=== PATIENT | male | born 1955 | race Caucasian/White ===

== ENCOUNTER 2016-04-05 15:09 | Emergency (ER) | payer OTHER ==
[2016-04-05 15:32] VITALS: BP 145/78; PULSE 77; RESP 18; TEMP 98.2
--- NOTE | 2016-04-05 16:27 | ED ---
Head Injury HPI - General Chief complaint: Head Injury Stated complaint: Fall - Head Injury ([facility]) Time Seen by Provider: 04/05/16 16:07 Source: patient, RN notes reviewed Mode of arrival: ambulatory Limitations: no limitations - History of Present Illness Initial comments: Patient is a 60-year-old male presenting to the with chief complaint of a headache injury after falling and slipping on ice. Patient reports she also has a laceration over the scalp. 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 He denies any other injuries at this time. He states that he has no specific headache. He does report he has some mild neck pain. Patient did refuse a c-collar in the triage. She reports his tetanus vaccination is up-to-date. Patient denies any recent fever , chills, shortness of breath, chest pain, back pain, abdominal pain, nausea vomiting, numbness or tingling, dysuria or hematuria, constipation or diarrhea, headaches or visual changes, or any other current symptoms. - Related Data Home Medications Medication Instructions Recorded Confirmed Aspirin [Adult Low Dose Aspirin EC] 81 mg PO BID 03/05/16 04/05/16 Levothyroxine Sodium [Synthroid] 125 mcg PO DAILY 03/05/16 04/05/16 [place]-3 Fatty Acids/Fish Oil [Fish 1 cap PO DAILY 03/05/16 04/05/16 Oil 1,000 mg Softgel] Ubidecarenone [Co Q-10] 30 mg PO DAILY 03/05/16 04/05/16 Allergies/Adverse reactions: Allergies Allergy/AdvReac Type Severity Reaction Status Date / Time No Known Allergies Allergy Verified 04/05/16 15:33 Review of Systems ROS Statement: Those systems with pertinent positive or pertinent negative responses have been documented in the HPI. ROS Other: All systems not noted in ROS Statement are negative. Past Medical History Past Medical History: Thyroid Disorder Additional Past Medical History / Comment(s): polycythemia, hypoglycemia History of Any Multi-Drug Resistant Organisms: None Reported Past Surgical History: Orthopedic Surgery Additional Past Surgical History / Comment(s): rhinoplasty, Rt elbow tendon repair, vasectomy Past Anesthesia/Blood Transfusion Reactions: No Reported Reaction Past Psychological History: No Psychological Hx Reported Smoking Status: Former smoker Past Alcohol Use History: Occasional Past Drug Use History: None Reported, Marijuana - Past Family History Mother Family Medical History: Cancer (Mother at age of 82 from stomach cancer) Father Family Medical History: Myocardial Infarction ([place]) (Father at the age of 56 from [place].) Brother(s) Family Medical History: No Reported History (Patient had 3 brothers one of them was murdered) Sister(s) Family Medical History: Congestive Heart Failure (CHF) (Patient had 4 sisters one of his sisters at age of 11 from VSD .) Son(s) Family Medical History: No Reported History (Patient has 2 sons no major medical problems) General Exam - General Exam Comments Initial Comments: Patient is a pleasant 60-year-old male. He does not appear to be in any acute distress at this time. Limitations: no limitations General appearance: alert, in no apparent distress Head exam: Present: atraumatic, normocephalic, normal inspection Eye exam: Present: normal appearance, PERRL, EOMI. Absent: scleral icterus, conjunctival injection, periorbital swelling ENT exam: Present: normal exam, normal oropharynx, mucous membranes moist Neck exam: Present: normal inspection. Absent: tenderness, meningismus, lymphadenopathy Respiratory exam: Present: normal lung sounds bilaterally. Absent: respiratory distress, wheezes, rales, rhonchi, stridor Cardiovascular Exam: Present: regular rate, normal rhythm, normal heart sounds. Absent: systolic murmur, diastolic murmur, rubs, gallop, clicks GI/Abdominal exam: Present: soft, normal bowel sounds. Absent: distended, tenderness, guarding, rebound, rigid Extremities exam: Present: normal inspection, full ROM, normal capillary refill. Absent: tenderness, pedal edema, joint swelling, calf tenderness Back exam: Present: normal inspection Neurological exam: Present: alert, oriented X3, CN II-XII intact Psychiatric exam: Present: normal affect, normal mood Skin exam: Present: warm, dry, intact, normal color. Absent: rash Course Vital Signs 04/05/16 15:29 Temperature 98.2 F Pulse Rate 77 Respiratory 18 Rate Blood Pressure 145/78 O2 Sat by Pulse 96 Oximetry Procedures - Laceration Laceration #1 Consent Obtained: verbal consent Indication: laceration Site: scalp (Posterior scalp) Size (cm): 3 Description: linear Depth: simple, single layer Anesthetic Used: benzocaine 0.25% Anesthesia Technique: local infiltration Amount (mls): 6 Pre-repair: wound explored, irrigated extensively Type of Sutures: other (Sterling) Number of Sutures: 5 Patient Tolerated Procedure: well, no complications Medical Decision Making - Medical Decision Making She is a pleasant 60-year-old male presenting to the after falling on the ice and hitting his head. He does have a laceration over the posterior scalp. Patient will be given marquise. CT brain and C-spine was ordered. Patient has no neurological deficits at this time. CT brain and C-spine are negative for any acute process. Patient was given 5 Sterling and his laceration. Patient started to monitor for any signs and head injury instructions were discussed. Patient understands treatment plan will comply. Patient will return in 7-10 days have marquise removed. Disposition Clinical Impression: Laceration of head, Concussion Disposition: HOME SELF-CARE Condition: Good Instructions: Concussion (ED), Head Injury (ED) Additional Instructions: Please return to the emergency room in 7-10 days to have a pulse removed. Please leave wound covered for the first 24-48 hours and then leave open to air after that time. Please use clean soap and water to clean the suture area to prevent scabbing over the top of your marquise. Please watch for any signs of infection which may include but not limited to increased pain, swelling, redness , fever or chills. Please return to the emergency room if any signs of infection do occur. Please return to the emergency room for any other concerns or complications. Patient instructed to for any signs of altered mental status or abnormal behavior. Patient is instructed to be monitored at all times for the next 24- 48 hours to make sure that there is no sequela of the head injury. Referrals: Raúl Serna MD [Primary Care Provider] - 1-2 days Time of Disposition: 16:57
--- NOTE | 2016-04-05 16:34 | CT ---
EXAMINATION TYPE: CT brain cspine wo con DATE OF EXAM: 04/05/2016 4:26 PM COMPARISON: 09/26/2010 HISTORY: Fall today with posterior head injury. CT DLP: 1512.50 mGycm, Automated exposure control for dose reduction was used. CONTRAST: None CT of the brain is performed utilizing 3 mm thick sections through the posterior fossa and 3 mm thick sections through the remaining calvarium. Study is performed within 24 hours of arrival to the hospital. No abnormal hyperdensity is present to suggest an acute intracranial hemorrhage. No mass lesion is evident. No acute infarcts are evident. Ventricles and sulci are appropriate for the patient age. Paranasal sinuses and mastoid air cells within the dintu-oo-amaz are clear. IMPRESSIONS: 1. Normal CT brain. CT cervical spine. COMPARISON: None CT of the cervical spine is performed in the axial plane at 2 mm thick sections. Reconstructed image s in the coronal, and sagittal plane are reviewed on the computer. No acute fractures are evident. Vertebral body alignment is normal. Disc heights are preserved. Vertebral body heights are preserved. No spinal canal stenosis is evident. No neural foraminal stenosis is evident. Some facet changes are present. IMPRESSIONS: 1. No acute osseous abnormality.
== END 2016-04-05 17:24 | disposition home or self-care (01) ==
LOC: EC 15:09
DX: S06.0X0A Concussion without loss of consciousness, initial encounter (principal); S01.01XA Laceration without foreign body of scalp, initial encounter; E07.9 Disorder of thyroid, unspecified; Z87.891 Personal history of nicotine dependence; Z79.82 Long term (current) use of aspirin; Z79.899 Other long term (current) drug therapy; W00.0XXA Fall on same level due to ice and snow, initial encounter; Y99.0 Civilian activity done for income or pay
CPT/HCPCS: 12002; 70450; 72125; 99283

== ENCOUNTER → 2016-11-22 | Outpatient (CLI) | payer OTHER ==
--- NOTE | 2016-11-22 22:34 | CONS ---
CONSULTATION A 60-year-old male patient is being investigated for secondary polycythemia. Sleep apnea was suspected. Anatomically, the patient does have a significant overbite and crowding of the posterior pharynx. He stops breathing at night and he snores loud. At times, he wakes up choking for air and he has chronic symptoms of nocturia. He goes to bed around 10:00 p.m., wakes up 7:00 a.m. in the morning. [place] score is at 3. No major hypersomnia or sleepiness. He is having episodic neurologic symptoms and has been investigated for MS. He has had previous history of double vision and further neurologic evaluation was done, indicated no MS. Nevertheless, the workup has not been definitive. He claims that his hemoglobin is around 17 with a hematocrit of 52. No previous phlebotomy. He has seen Hematology/Oncology and he does not have any primary polycythemia rubra vera. PAST MEDICAL HISTORY: 1. Polycythemia under investigation. 2. Hypothyroidism. PAST SURGICAL HISTORY: Includes rhinoplasty, vasectomy and tendon repair. ALLERGIES: Not known. OUTPATIENT MEDICATION: Includes: 1. Claritin-D and. 2. Levothyroxine. SOCIAL HISTORY: Nonsmoker. No history of alcohol. No history of IV drugs. FAMILY HISTORY: Mother had MS. Father of complications of myocardial infarction. REVIEW OF SYSTEMS: A 12-point review of system was done. Positive findings are mentioned above in history of present illness. BP is 138/93, pulse 72, respirations 16, temperature 98.5, saturation 95% on room air. Weight is 202. Height is 5 feet 9 inches. Neck size 15-1/2 inches. GENERAL APPEARANCE: Calm, comfortable. HEENT: Mallampati class IV with significant overbite. LUNGS: Clear to auscultation. HEART: Sounds are regular rate and rhythm. Normal S1, S2. ABDOMEN: Soft, nontender. No organomegaly. EXTREMITIES: No edema. No cyanosis or clubbing. IMPRESSION: 1. Polycythemia under investigation. Rule out secondary cause, including obstructive sleep apnea. 2. Significant overbite and Mallampati class IV. 3. Episodic neurologic deficits in addition to visual disturbance, under investigation for multiple sclerosis. 4. Hypothyroidism. PLAN: 1. Proceed with a polysomnogram looking for a significant sleep breathing disorder contributing to polycythemia. 2. Will review the sleep study once complete and will make further recommendations accordingly. MMODL / IJN: [id number] /
== END ==
LOC: SLEEP 16:18
PROVIDERS: ATTEND Internal Medicine Critical Care Medicine
DX: E03.9 Hypothyroidism, unspecified (principal); Z79.899 Other long term (current) drug therapy
CPT/HCPCS: 99211

== ENCOUNTER → 2017-06-20 | Outpatient (CLI) | payer OTHER ==
--- NOTE | 2017-06-20 18:47 | PN ---
PROGRESS NOTE This is a 61-year-old male patient who is coming in for a compliancy check regarding his obstructive sleep apnea treatment. The patient was diagnosed having TRUE with an AHI of 26, worse in the supine body position, where the AHI was measured to be 47.3. The patient was offered CPAP therapy, and the patient is currently receiving CPAP with a pressure of 10 cm of water. On today's evaluation, the patient reports marked improvement in his sleep quality. He is sleeping much better. He is waking up much more alert and refreshed during the day. No major hypersomnia or sleepiness during the day. He is able to function without feeling drowsy or sleepy. He is very compliant. He is averaging around 7.6 hours of CPAP use per night. Leak factor is 26 L/minute. AHI while on treatment is down to 2. He is using the nose pillows. He needs a follow-up CBC regarding his chronic polycythemia. He is known to have hypothyroidism. Another issue is some discomfort and irritation in the back of his throat. He was treated for H pylori by triple antibiotic. During the course of the treatment he felt better, and I suspect that the patient is having on and off reflux contributing to his throat symptoms. The patient is also having post-nasal drainage, for which he is on Flonase, and he is also taking loratadine over the counter. REVIEW OF SYSTEMS: Twelve-point review of systems was done. No recent weight gain or weight loss. Appetite is good. He has occasional post-nasal drainage, for which he is on Flonase. No sinus pain or drainage. No chronic pain or fibromyalgia syndrome-like symptoms. No arthritis. No joint deformities. No cough or sputum production. No nausea or vomiting. He may have occasional reflux. No headaches or altered mentation. No falls. No skeletal injuries. No wounds or ulcers. No anxiety. No depression. No other complaints otherwise. PHYSICAL EXAMINATION: BP is 137/84, pulse 69, respirations 16, temperature 98.1. Leroy score is 5. Saturation 96% on room air. Weight is 203. GENERAL APPEARANCE: Calm, comfortable. Head is atraumatic, normocephalic. NECK: Supple. There is no JVD. No goiter or neck masses. Mallampati class IV. LUNGS: Clear to auscultation. HEART: Heart sounds are regular rate and rhythm. Normal S1, S2. No S3, S4. No murmurs. ABDOMEN: Soft, nontender. No organomegaly. EXTREMITIES: No edema. No cyanosis or clubbing. NEUROLOGIC: Alert and oriented x3. There is no focal neurological deficit. PSYCHIATRIC: Negative for anxiety or depression. SKIN: Negative for any wounds or ulceration. IMPRESSION: 1. Symptomatic obstructive sleep apnea with an AHI of 26, currently on a CPAP pressure of 10 cm of water with excellent clinical response and compliance. 2. Post-nasal drainage, allergic in nature, currently on a combination of Flonase and Claritin. 3. Occasional throat irritation, probably reflux. 4. Helicobacter pylori infection, treated. 5. Hypersomnia, improved. 6. Polycythemia that needs to be followed up. Rule out secondary polycythemia related to obstructive sleep apnea. PLAN: 1. Continue CPAP treatment at the same level of pressure. 2. Offer Prevacid 30 mg p.o. at bedtime. 3. Continue Flonase and Claritin. 4. Follow-up CBC regarding polycythemia. 5. Clinically improved. The patient is less somnolent and sleepy. He will see me back in a year's time, earlier if needed. MMODL / IJN: [id number] /
== END | disposition home or self-care (01) ==
LOC: SLEEP 16:51
PROVIDERS: ATTEND Internal Medicine Critical Care Medicine
DX: G47.33 Obstructive sleep apnea (adult) (pediatric) (principal); R09.82 Postnasal drip; B96.81 Helicobacter pylori [H. pylori] as the cause of diseases classified elsewhere; G47.10 Hypersomnia, unspecified; R07.0 Pain in throat; Z99.89 Dependence on other enabling machines and devices

== ENCOUNTER 2018-07-02 12:58 | Inpatient (IN) | payer OTHER ==
[2018-07-02] MEDS ORDERED: cefTRIAXone IN SWFI 1,000 MG/10 ML SYRINGE IVP STA (13:28)
[2018-07-02] MEDS ORDERED: VANCOMYCIN IV PER PHARMACY 1 EACH MISC MISCELLANE PRN (13:33)
--- NOTE | 2018-07-02 13:36 | ED ---
General Adult HPI - General Chief complaint: Extremity Problem,Nontraumatic Stated complaint: lt knee infection Time Seen by Provider: 07/02/18 13:00 Source: patient, RN notes reviewed Mode of arrival: wheelchair Limitations: no limitations - History of Present Illness Initial comments: This is a 62-year-old male presents emergency Department with a red swollen hot suprapatellar knee. Patient states started a few days ago after is crawling around in the attic. Patient states he can bend his knee but hurts on the top of his knee above the patella. Patient states he has had a fever but he does note the temperature was. Patient denies any chills. Patient states the redness has started to spread as of today. Patient denies any other symptoms at this time. Patient denies any ALLERGIES to antibiotics. Patient states he saw Dr. Kareem Serna wanted him to come the emergency department. - Related Data Home Medications Medication Instructions Recorded Confirmed Levothyroxine Sodium [Synthroid] 125 mcg PO DAILY 03/05/16 07/02/18 Ibuprofen [Motrin Ib] 200 - 600 mg PO Q6H PRN 07/02/18 07/02/18 [place](Unknown Dose) 1 tab PO ONCE PRN 07/02/18 07/02/18 Allergies Allergy/AdvReac Type Severity Reaction Status Date / Time No Known Allergies Allergy Verified 07/02/18 13:17 Review of Systems ROS Statement: Those systems with pertinent positive or pertinent negative responses have been documented in the HPI. ROS Other: All systems not noted in ROS Statement are negative. Past Medical History Past Medical History: GERD/Reflux, Thyroid Disorder Additional Past Medical History / Comment(s): polycythemia, hypoglycemia History of Any Multi-Drug Resistant Organisms: None Reported Past Surgical History: Orthopedic Surgery Additional Past Surgical History / Comment(s): rhinoplasty, Rt elbow tendon repair, vasectomy, COLONOSCOPY Past Anesthesia/Blood Transfusion Reactions: Postoperative Nausea & Vomiting (PONV) Past Psychological History: No Psychological Hx Reported Smoking Status: Former smoker Past Alcohol Use History: None Reported Past Drug Use History: None Reported - Past Family History Mother Family Medical History: Cancer Father Family Medical History: Myocardial Infarction ([place]) Brother(s) Family Medical History: No Reported History Sister(s) Family Medical History: Congestive Heart Failure (CHF) Son(s) Family Medical History: No Reported History General Exam - General Exam Comments Initial Comments: GENERAL: Patient is well-developed and well-nourished. Patient is nontoxic and well- hydrated and is in mild distress. ENT: Neck is soft and supple. Neck has full range of motion without eliciting any pain. EYES: The sclera were anicteric and conjunctiva were pink and moist. Extraocular movements were intact and pupils were equal round and reactive to light. Eyelids were unremarkable. PULMONARY: Unlabored respirations. Good breath sounds bilaterally. No audible rales rhonchi or wheezing was noted. CARDIOVASCULAR: There is a regular rate and rhythm without any murmurs gallops or rubs. ABDOMEN: Soft and nontender with normal bowel sounds. SKIN: Skin is clear with no lesions or rashes and otherwise unremarkable. NEUROLOGIC: Patient is alert and oriented x3. Cranial nerves II through XII are grossly intact. Motor and sensory are also intact. Normal speech, volume and content. Symmetrical smile. MUSCULOSKELETAL: The left suprapatellar region is erythematous tender and slightly swollen. LYMPHATICS: No significant lymphadenopathy is noted PSYCHIATRIC: Normal psychiatric evaluation. Limitations: no limitations Course Vital Signs 07/02/18 13:00 Temperature 98.0 F Pulse Rate 86 Respiratory 18 Rate Blood Pressure 145/84 O2 Sat by Pulse 99 Oximetry Medical Decision Making - Medical Decision Making EKG shows normal sinus rhythm at 80 bpm AR interval 248 QRSs 120 QT interval 396 QTC is 456 per patient's EKG shows right bundle-branch block. Disposition Clinical Impression: Septic prepatellar bursitis Disposition: ADMITTED IP TO THIS HOSP Referrals: Raúl Serna MD [Primary Care Provider] - 1-2 days Time of Disposition: 13:35
[2018-07-02] MEDS ORDERED: SODIUM CHLORIDE 0.9% 1,000 ML IV ONE (13:39)
[2018-07-02] MEDS ORDERED: VANCOMYCIN 1,750 MG in SODIUM CHLORIDE 0.9% 500 ML 500 ML IVPB STA (13:39)
[2018-07-02 14:11] LABS: Basophils % (A) 0 %; Eosinophils # (A) 0.2 k/uL (0-0.7); Eosinophils % (A) 2 %; HCT 41.2 % (39.0-53.0); HGB 14.5 gm/dL (13.0-17.5); Lymphocytes # (A) 1.4 k/uL (1.0-4.8); Lymphocytes % (A) 13 %; MCH 29.2 pg (25.0-35.0); MCHC 35.1 g/dL (31.0-37.0); MCV 83.1 fL (80.0-100.0); Mean Platelet Volume 6.1; Monocytes # (A) 0.8 k/uL (0-1.0); Monocytes % (A) 7 %; Neutrophils # (A) 8.7 k/uL (1.3-7.7); Neutrophils % (A) 77 %; Platelet Count 197 k/uL (150-450); RBC 4.96 m/uL (4.30-5.90); RDW 12.7 % (11.5-15.5); WBC 11.3 k/uL (3.8-10.6)
[2018-07-02 14:20] LABS: ALT 22 U/L (21-72); AST 21 U/L (17-59); Alkaline Phosphatase 84 U/L (38-126); Anion Gap 10 mmol/L; Blood Urea Nitrogen 16 mg/dL (9-20); Calcium 9.5 mg/dL (8.4-10.2); Carbon Dioxide 25 mmol/L (22-30); Chloride 104 mmol/L (98-107); Glucose 144 mg/dL (74-99); Potassium 4.2 mmol/L (3.5-5.1); Sodium 139 mmol/L (137-145); Total Bilirubin 0.7 mg/dL (0.2-1.3); Total Protein 6.8 g/dL (6.3-8.2)
[2018-07-02] MEDS ORDERED: HYDROcodone/APAP 5-325MG 1 EACH TAB PO PRN (14:48)
--- NOTE | 2018-07-02 14:56 | P.HPIM ---
History of Present Illness H&P Date: 07/02/18 Chief Complaint: Left knee pain This is a 62-year-old male patient of Drs. Osei with past medical history of hypothyroidism. Patient states he recently had his left knee checked by Dr. Farooq and was told he had some tendinitis. Patient then went to [place] and worked on remodeling a home. He developed redness and swelling to the left knee to continue to progress. He tried taking [place] and ibuprofen for pain which became much worse last evening. He also complains of fever and chills with generalized muscle aches. He also complains of cough productive. He denies abdominal symptoms. Patient came into [facility] emergency center for evaluation. He was found to be afebrile, white count 11.3, blood sugar 144, creatinine 0.82. Electrolytes and liver function tests within normal limits. Patient was started on Rocephin and vancomycin and admitted to the [facility] floor. Consult in place for Dr. Farooq and added consult for Dr. Hamilton. Review of Systems All systems: negative Constitutional: Reports chills, Reports fatigue, Reports fever, Denies malaise, Denies poor appetite, Denies weakness, Denies weight loss Eyes: denies blurred vision, denies pain Ears, nose, mouth and throat: Reports post-nasal drip, Denies dental pain, Denies dysphagia, Denies headache, Denies hoarseness, Denies mouth pain, Denies sore throat, Denies vertigo Cardiovascular: Reports leg edema, Denies chest pain, Denies dyspnea on exertion, Denies edema, Denies lightheadedness, Denies orthopnea, Denies shor tness of breath, Denies syncope Respiratory: Reports cough, Denies cough with sputum, Denies dyspnea, Denies excessive sputum, Denies hemoptysis, Denies home oxygen, Denies wheezing Gastrointestinal: Denies abdominal pain, Denies diarrhea, Denies loss of appetite, Denies nausea, Denies vomiting Genitourinary: Denies dysuria Musculoskeletal: Reports gait dysfunction, Reports myalgias, Denies frequent falls, Denies muscle weakness Musculoskeletal: left: knee pain, knee stiffness, knee swelling Integumentary: Reports color changes, Reports darkening of skin, Denies pruritus, Denies rash Neurological: Denies aphasia, Denies change in mentation, Denies change in speech, Denies headaches, Denies numbness, Denies seizures, Denies weakness Psychiatric: Denies anxiety, Denies depression Endocrine: Denies fatigue, Denies weight change Past Medical History Past Medical History: GERD/Reflux, Thyroid Disorder Additional Past Medical History / Comment(s): polycythemia, hypoglycemia History of Any Multi-Drug Resistant Organisms: None Reported Past Surgical History: Heart Catheterization, Orthopedic Surgery Additional Past Surgical History / Comment(s): rhinoplasty, Rt tricep tendon repair, vasectomy, COLONOSCOPY Past Anesthesia/Blood Transfusion Reactions: Postoperative Nausea & Vomiting (PONV) Past Psychological History: No Psychological Hx Reported Smoking Status: Former smoker Past Alcohol Use History: None Reported Additional Past Alcohol Use History / Comment(s): Patient smoked for only 78 years and quit 37 years ago. He denies any marijuana, street drug or alcohol use. He lives at home with his . They do have a second home in [place]. Past Drug Use History: None Reported - Past Family History Mother Family Medical History: Cancer Additional Family Medical History / Comment(s): Mother at age 82 from stomach cancer with metastatic disease to the brain. Father Family Medical History: Myocardial Infarction ([place]) Additional Family Medical History / Comment(s): Father at age 56 from a myocardial infarction. Brother(s) Family Medical History: No Reported History Additional Family Medical History / Comment(s): Patient has 3 brothers. One was murdered. Other brothers has no major medical problems. Sister(s) Family Medical History: Congestive Heart Failure (CHF) Additional Family Medical History / Comment(s): The patient is a total of 4 sisters. One from congenital heart disease at age 11. Son(s) Family Medical History: No Reported History Additional Family Medical History / Comment(s): Patient has 2 sons with no major medical problems. Medications and Allergies Home Medications Medication Instructions Recorded Confirmed Type Levothyroxine Sodium [Synthroid] 125 mcg PO DAILY 03/05/16 07/02/18 History Ibuprofen [Motrin Ib] 200 - 600 mg PO Q6H PRN 07/02/18 07/02/18 History Vinton(Unknown Dose) 1 tab PO ONCE PRN 07/02/18 07/02/18 History Allergies Allergy/AdvReac Type Severity Reaction Status Date / Time No Known Allergies Allergy Verified 07/02/18 13:17 Physical Exam Vitals: Vital Signs Temp Pulse Resp BP Pulse Ox 07/02/18 13:00 98.0 F 86 18 145/84 99 Intake and Output 07/01/18 07/02/18 07/02/18 22:59 06:59 14:59 Other: Weight 90.718 kg Gen: This is a 62-year-old male. He is sitting up in the ER stretcher appears to be comfortable and in no acute distress. HEENT: Head is atraumatic, normocephalic. Pupils equal, round. Sclerae is anicteric. NECK: Supple. No JVD. No lymphadenopathy. No thyromegaly. LUNGS: Clear to auscultation. No wheezes or rhonchi. No intercostal retractions. HEART: Regular rate and rhythm. No murmur. ABDOMEN: Soft. Bowel sounds are present. No masses. No tenderness. EXTREMITIES: No pedal edema. No calf tenderness. Significant erythema and edema with warmth to the left knee. NEUROLOGICAL: Patient is awake, alert and oriented x3. Cranial nerves 2 through 12 are grossly intact. Results CBC & Chem 7: 07/02/18 13:55 07/02/18 13:55 Labs: Abnormal Lab Results - Last 24 Hours (Table) 07/02/18 07/02/18 Range/Units 13:55 13:55 WBC 11.3 H (3.8-10.6) k/uL Neutrophils # 8.7 H (1.3-7.7) k/uL Glucose 144 H (74-99) mg/dL Thrombosis Risk Factor Assmnt - DVT/VTE Prophylaxis DVT/VTE Prophylaxis: Pharmacologic Prophylaxis ordered Assessment and Plan Plan: 1. Septic bursitis left knee. Patient's been started on Rocephin and vancomycin. Consult with Dr. Farooq and Dr. Hamilton. Toradol scheduled for pain control and Vinton or Tylenol available as needed. 2. Hypothyroidism. Continue levothyroxine. 3. DVT prophylaxis. Heparin subcu. 4. GI prophylaxis. Pepcid. 5. Hyperglycemia without history of diabetes. Patient will be admitted to the hospital for a minimum of 2 night stay. Discharge plan: To be determined Impression and plan of care have been directed as dictated by the signing physician. Christine Gonzalez nurse practitioner acting as scribe for signing physician.
--- NOTE | 2018-07-02 15:00 | P.CONS ---
History of Present Illness - Reason for Consult Consult date: 07/02/18 Left knee septic bursitis - History of Present Illness This is a 62-year-old male patient with past medical history of hypothyroidism. Patient states he recently had his left knee checked by Dr. Farooq and was told he had some tendinitis. Patient then went to [place] and worked on remodeling a home. He developed redness and swelling to the left knee to continue to progress. He tried taking [place] and ibuprofen for pain which became much worse last evening. He also complains of fever and chills with generalized muscle aches. He also complains of cough productive. He denies abdominal symptoms. Patient came into [facility] emergency center for evaluation. He was found to be afebrile, white count 11.3, blood sugar 144, creatinine 0.82. Electrolytes and liver function tests within normal limits. Patient was started on Rocephin and vancomycin and admitted to the [facility] floor. Consult in place for Dr. Farooq. Blood cultures are status received. Review of Systems Constitutional: Reports chills, Reports fatigue, Reports fever, Denies malaise, Denies poor appetite, Denies weakness, Denies weight loss Eyes: denies blurred vision, denies pain Ears, nose, mouth and throat: Reports post-nasal drip, Denies dental pain, Denies dysphagia, Denies headache, Denies hoarseness, Denies mouth pain, Denies sore throat, Denies vertigo Cardiovascular: Reports leg edema, Denies chest pain, Denies dyspnea on exertion, Denies edema, Denies lightheadedness, Denies orthopnea, Denies shortness of breath, Denies syncope Respiratory: Reports cough, Denies cough with sputum, Denies dyspnea, Denies excessive sputum, Denies hemoptysis, Denies home oxygen, Denies wheezing Gastrointestinal: Denies abdominal pain, Denies diarrhea, Denies loss of appetite, Denies nausea, Denies vomiting Genitourinary: Denies dysuria Musculoskeletal: Reports gait dysfunction, Reports myalgias, Denies frequent falls, Denies muscle weakness Musculoskeletal: left: knee pain, knee stiffness, knee swelling Integumentary: Reports color changes, Reports darkening of skin, Denies pruritus, Denies rash Neurological: Denies aphasia, Denies change in mentation, Denies change in speech, Denies headaches, Denies numbness, Denies seizures, Denies weakness Psychiatric: Denies anxiety, Denies depression Endocrine: Denies fatigue, Denies weight change Past Medical History Past Medical History: GERD/Reflux, Thyroid Disorder Additional Past Medical History / Comment(s): polycythemia, hypoglycemia History of Any Multi-Drug Resistant Organisms: None Reported Past Surgical History: Heart Catheterization, Orthopedic Surgery Additional Past Surgical History / Comment(s): rhinoplasty, Rt tricep tendon repair, vasectomy, COLONOSCOPY Past Anesthesia/Blood Transfusion Reactions: Postoperative Nausea & Vomiting (PONV) Past Psychological History: No Psychological Hx Reported Smoking Status: Former smoker Past Alcohol Use History: None Reported Additional Past Alcohol Use History / Comment(s): Patient smoked for only 78 years and quit 37 years ago. He denies any marijuana, street drug or alcohol use. He lives at home with his . They do have a second home in [place]. Past Drug Use History: None Reported - Past Family History Mother Family Medical History: Cancer Additional Family Medical History / Comment(s): Mother at age 82 from stomach cancer with metastatic disease to the brain. Father Family Medical History: Myocardial Infarction ([place]) Additional Family Medical History / Comment(s): Father at age 56 from a myocardial infarction. Brother(s) Family Medical History: No Reported History Additional Family Medical History / Comment(s): Patient has 3 brothers. One was murdered. Other brothers has no major medical problems. Sister(s) Family Medical History: Congestive Heart Failure (CHF) Additional Family Medical History / Comment(s): The patient is a total of 4 sisters. One from congenital heart disease at age 11. Son(s) Family Medical History: No Reported History Additional Family Medical History / Comment(s): Patient has 2 sons with no major medical problems. Medications and Allergies Home Medications Medication Instructions Recorded Confirmed Type Levothyroxine Sodium [Synthroid] 125 mcg PO DAILY 03/05/16 07/02/18 History Ibuprofen [Motrin Ib] 200 - 600 mg PO Q6H PRN 07/02/18 07/02/18 History Monte[place](Unknown Dose) 1 tab PO ONCE PRN 07/02/18 07/02/18 History Allergies Allergy/AdvReac Type Severity Reaction Status Date / Time No Known Allergies Allergy Verified 07/02/18 13:17 Physical Exam Vitals: Vital Signs Temp Pulse Resp BP Pulse Ox 07/02/18 13:00 98.0 F 86 18 145/84 99 Intake and Output 07/01/18 07/02/18 07/02/18 22:59 06:59 14:59 Other: Weight 90.718 kg Gen: This is a 62-year-old male. He is sitting up in the ER stretcher appears to be comfortable and in no acute distress. HEENT: Head is atraumatic, normocephalic. Pupils equal, round. Sclerae is anicteric. NECK: Supple. No JVD. No lymphadenopathy. No thyromegaly. LUNGS: Clear to auscultation. No wheezes or rhonchi. No intercostal retractions. HEART: Regular rate and rhythm. No murmur. ABDOMEN: Soft. Bowel sounds are present. No masses. No tenderness. EXTREMITIES: No pedal edema. No calf tenderness. Significant erythema and edema with warmth to the left knee. NEUROLOGICAL: Patient is awake, alert and oriented x3. Cranial nerves 2 through 12 are grossly intact. Results Results: Laboratory Results WBC 11.3 k/uL (3.8-10.6) H 07/02/18 13:55 RBC 4.96 m/uL (4.30-5.90) 07/02/18 13:55 Hgb 14.5 gm/dL (13.0-17.5) 07/02/18 13:55 Hct 41.2 % (39.0-53.0) 07/02/18 13:55 MCV 83.1 fL (80.0-100.0) 07/02/18 13:55 MCH 29.2 pg (25.0-35.0) 07/02/18 13:55 MCHC 35.1 g/dL (31.0-37.0) 07/02/18 13:55 RDW 12.7 % (11.5-15.5) 07/02/18 13:55 Plt Count 197 k/uL (150-450) 07/02/18 13:55 Neutrophils % 77 % 07/02/18 13:55 Lymphocytes % 13 % 07/02/18 13:55 Monocytes % 7 % 07/02/18 13:55 Eosinophils % 2 % 07/02/18 13:55 Basophils % 0 % 07/02/18 13:55 Neutrophils # 8.7 k/uL (1.3-7.7) H 07/02/18 13:55 Lymphocytes # 1.4 k/uL (1.0-4.8) 07/02/18 13:55 Monocytes # 0.8 k/uL (0-1.0) 07/02/18 13:55 Eosinophils # 0.2 k/uL (0-0.7) 07/02/18 13:55 Basophils # 0.0 k/uL (0-0.2) 07/02/18 13:55 Sodium 139 mmol/L (137-145) 07/02/18 13:55 Potassium 4.2 mmol/L (3.5-5.1) 07/02/18 13:55 Chloride 104 mmol/L (98-107) 07/02/18 13:55 Carbon Dioxide 25 mmol/L (22-30) 07/02/18 13:55 Anion Gap 10 mmol/L 07/02/18 13:55 BUN 16 mg/dL (9-20) 07/02/18 13:55 Creatinine 0.82 mg/dL (0.66-1.25) 07/02/18 13:55 Est GFR (CKD-EPI)AfAm >90 (>60 ml/min/1.73 sqM) 07/02/18 13:55 Est GFR (CKD-EPI)NonAf >90 (>60 ml/min/1.73 sqM) 07/02/18 13:55 Glucose 144 mg/dL (74-99) H 07/02/18 13:55 Plasma Lactic Acid Florentino 1.4 mmol/L (0.7-2.0) 07/02/18 13:55 Calcium 9.5 mg/dL (8.4-10.2) 07/02/18 13:55 Total Bilirubin 0.7 mg/dL (0.2-1.3) 07/02/18 13:55 AST 21 U/L (17-59) 07/02/18 13:55 ALT 22 U/L (21-72) 07/02/18 13:55 Alkaline Phosphatase 84 U/L (38-126) 07/02/18 13:55 Total Protein 6.8 g/dL (6.3-8.2) 07/02/18 13:55 Albumin 4.0 g/dL (3.5-5.0) 07/02/18 13:55 CBC & Chem 7: 07/02/18 13:55 07/02/18 13:55 Labs: Abnormal Lab Results - Last 24 Hours (Table) 07/02/18 07/02/18 Range/Units 13:55 13:55 WBC 11.3 H (3.8-10.6) k/uL Neutrophils # 8.7 H (1.3-7.7) k/uL Glucose 144 H (74-99) mg/dL Assessment and Plan Plan: This is a 62-year-old male who presented to the hospital with septic bursitis of the left knee. There is a consult in place for Dr. Farooq and 04 blood cultures to be obtained if he performs I&D. Patient is currently on Rocephin and vancomycin. He has Toradol scheduled for pain control and [place] or Tylenol available as needed. Blood cultures status received. Continue supportive care. Further recommendations as patient progresses. The above dictated assessment and findings were discussed with Dr. Hamilton. The impression and plan of care have been directed as dictated. Christine Gonzalez nurse practitioner acting as scribe for Dr. Hamilton.
[2018-07-02] MEDS: KETOROLAC 30 MG/ML 1 ML VIAL IVP SCH ×3 (15:19→23:14)
[2018-07-02] MEDS: VANCOMYCIN 1,500 MG in SODIUM CHLORIDE 0.9% 250 ML IVPB SCH (23:15)
[2018-07-03] MEDS: LEVOTHYROXINE 125 MCG TAB PO SCH (05:44)
[2018-07-03] MEDS: KETOROLAC 30 MG/ML 1 ML VIAL IVP SCH ×3 (05:44→18:23)
[2018-07-03] MEDS: VANCOMYCIN 1,500 MG in SODIUM CHLORIDE 0.9% 250 ML IVPB SCH ×2 (07:27→16:46)
[2018-07-03] MEDS: ACETAMINOPHEN TAB 325 MG TAB PO PRN (11:09)
--- NOTE | 2018-07-03 12:14 | P.CNOR ---
History of Present Illness - HPI Consult date: 07/03/18 History of present illness: This is a 62-year-old male who is admitted for swelling and pain in the left knee. Patient states that he was recently working in an attic and kneeling when he developed pain and swelling in the left knee. Patient states that he first noticed these symptoms on 06/27/2018. Patient reports having a fever along with a cough as well. Patient states that he was sent to the emergency room by his primary care physician for further management. Patient states that since he has been on IV antibiotics he has noticed marked improvement in swelling. Patient states that he did have redness spreading down his leg, but this has improved. Patient denies any numbness, weakness, tingling, abdominal pain, shortness of breath or chest pain. Review of Systems See HPI. Past Medical History Past Medical History: GERD/Reflux, Osteoarthritis (OA), Sleep Apnea/CPAP/BIPAP, Thyroid Disorder Additional Past Medical History / Comment(s): polycythemia, hypoglycemia, hypothyroid, MVP, TRUE with Cpap use, slight dysphagia History of Any Multi-Drug Resistant Organisms: None Reported Past Surgical History: Heart Catheterization, Orthopedic Surgery Additional Past Surgical History / Comment(s): rhinoplasty, Rt tricep tendon repair, vasectomy, EGD/COLONOSCOPY Past Anesthesia/Blood Transfusion Reactions: Postoperative Nausea & Vomiting (PONV) Smoking Status: Former smoker - Past Family History Mother Family Medical History: Cancer Additional Family Medical History / Comment(s): Mother at age 82 from stomach cancer with metastatic disease to the brain. Father Family Medical History: Myocardial Infarction ([place]) Additional Family Medical History / Comment(s): Father at age 56 from a myocardial infarction. Brother(s) Family Medical History: No Reported History Additional Family Medical History / Comment(s): Patient has 3 brothers. One was murdered. Other brothers have no major medical problems. Sister(s) Family Medical History: Congestive Heart Failure (CHF) Additional Family Medical History / Comment(s): The patient is a total of 4 sisters. One from congenital heart disease at age 11. Son(s) Family Medical History: No Reported History Additional Family Medical History / Comment(s): Patient has 2 sons with no major medical problems. Medications and Allergies Home Medications Medication Instructions Recorded Confirmed Type Levothyroxine Sodium [Synthroid] 125 mcg PO DAILY 03/05/16 07/02/18 History Ibuprofen [Motrin Ib] 200 - 600 mg PO Q6H PRN 07/02/18 07/02/18 History Spencer(Unknown Dose) 1 tab PO ONCE PRN 07/02/18 07/02/18 History Allergies Allergy/AdvReac Type Severity Reaction Status Date / Time No Known Allergies Allergy Verified 07/02/18 13:17 Physical Examination On exam patient is sitting up comfortably in bed in no acute distress. Patient is alert and oriented 3. There is mild swelling to the anterior aspect of the left knee. The prepatellar bursa is boggy when palpated. There is mild erythema and skin is intact. There is no tenderness to palpation. Calf is soft and nontender to palpation. Sensation is intact. Neurovascular status and circulatory status are intact. Results - Labs Labs: Abnormal Lab Results - Last 24 Hours (Table) 07/02/18 07/02/18 Range/Units 13:55 13:55 WBC 11.3 H (3.8-10.6) k/uL Neutrophils # 8.7 H (1.3-7.7) k/uL Glucose 144 H (74-99) mg/dL H & H 07/02/18 Range/Units 13:55 Hgb 14.5 (13.0-17.5) gm/dL Hct 41.2 (39.0-53.0) % Result Diagrams: 07/02/18 13:55 07/02/18 13:55 Assessment and Plan Assessment: GERD Sleep apnea Thyroid disorder Osteoarthritis (1) Septic prepatellar bursitis Current Visit: Yes Status: Acute Code(s): M71.169 - OTHER INFECTIVE BURSITIS, UNSPECIFIED KNEE SNOMED Code(s): 85293886 Plan: 1. Recommend warm compresses to the left knee with K-pad. 2. Continue IV antibiotics per infectious disease. 3. No surgical intervention planned. Will continue to follow the patient closely.
[2018-07-03] MEDS ORDERED: LIDOCAINE 1% INJ 10MG/ML (20 ML MDV) SQ ONE (15:18)
--- NOTE | 2018-07-03 17:13 | P.CON ---
Consult Note - . Consult date: 07/03/18 Assessment/Plan:: This is a 62-year-old male patient with past medical history of hypothyroidism. Patient states he recently had his left knee checked by Dr. Farooq and was told he had some tendinitis. Patient then went to [place] and worked on [place] a home. He developed redness and swelling to the left knee to continue to progress. He tried taking Maynard and ibuprofen for pain which became much worse last evening. He also complains of fever and chills with generalized muscle aches. He also complains of cough productive. He denies abdominal symptoms. Patient came into [facility] emergency center for evaluation. He was found to be afebrile, white count 11.3, blood sugar 144, creatinine 0.82. Electrolytes and liver function tests within normal limits. Patient was started on Rocephin and vancomycin and [facility]. Consult in place for Dr. Farooq. Blood cultures are status received.please see the consult note is dictated by nurse practitioner Mrs. Christine Gonzalez. 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 He did have on some kneepads but because he was sweating they didn't stay in place and he did not continuously reposition them. He did recognize that he had some trauma to his knees. And now has developed evidence of the significant left prepatellar bursitis. I did the pleasure of discussing the case with orthopedic surgery and they will aspirate the site for cultures will also help with more rapid resolution of the underlying infectious process. Antimicrobial therapy with vancomycin and Rocephin has been started. Pain control with ketorolac is an excellent choice. Warmth is being applied for pain control. Cultures from the site will help determine course of antibiotic therapy at discharge. If he rapidly improves should be able to utilize an oral course of antimicrobial therapy. I was evaluation, he is dictated by nurse practitioner Mrs. Christine Gonzalez.
[2018-07-03 17:24] LABS: Hemoglobin A1C 4.8 % (4.0-6.0)
[2018-07-04] MEDS: VANCOMYCIN 1,500 MG in SODIUM CHLORIDE 0.9% 250 ML IVPB SCH ×2 (00:06→07:35)
[2018-07-04] MEDS: KETOROLAC 30 MG/ML 1 ML VIAL IVP SCH ×4 (00:06→19:16)
[2018-07-04] MEDS: LEVOTHYROXINE 125 MCG TAB PO SCH (05:43)
[2018-07-04] MEDS ORDERED: VANCOMYCIN TROUGH DUE 1 EACH MISC MISCELLANE ONE (07:00)
[2018-07-04 07:52] LABS: Anion Gap 6 mmol/L; Blood Urea Nitrogen 19 mg/dL (9-20); Calcium 8.5 mg/dL (8.4-10.2); Carbon Dioxide 27 mmol/L (22-30); Chloride 107 mmol/L (98-107); Glucose 96 mg/dL (74-99); Potassium 3.9 mmol/L (3.5-5.1); Sodium 140 mmol/L (137-145)
--- NOTE | 2018-07-04 08:33 | P.PN ---
Subjective Progress Note Date: 07/04/18 This is a 62-year-old male who is admitted for septic left prepatellar bursitis. Patient states that his pain has improved today, but he has not noticed much improvement in swelling. Patient states that he has been using the heating pad. Patient denies any new complaints today. denies any fever/chills, numbness, weakness, tingling, abdominal pain, shortness of breath or chest pain. Objective - Vital Signs Vital signs: Vital Signs Temp 98.5 F 07/04/18 07:00 Pulse 76 07/04/18 07:40 Resp 17 07/04/18 07:00 BP 123/75 07/04/18 07:00 Pulse Ox 94 L 07/04/18 07:00 Intake & Output 07/03/18 07/04/18 07/04/18 18:59 06:59 18:59 Intake Total 300 460 220 Balance 300 460 220 Intake: Intake, IV Titration 300 460 Amount Sodium Chloride 0.9% 1, 210 000 ml @ 75 mls/hr IV . [id number] [facility] Rx#:[id number] Vancomycin 1,500 mg In 250 250 Sodium Chloride 0.9% 250 ml @ 125 mls/hr IVPB Q8HR [facility] Rx#:[id number] cefTRIAXone 1 gm In 50 Sodium Chloride 0.9% 50 ml @ 100 mls/hr IVPB Q24HR [facility] Rx#:[id number] Oral 220 Other: Voiding Method Toilet # Voids 1 1 - Exam Vital signs are stable. Patient is in no acute distress and is alert and oriented 3. There is mild swelling and erythema over the anterior aspect of the left knee. This area is mildly tender to palpation and fluctuant. Calf is soft and nontender to palpation. Patient has full foot and ankle motion without pain or difficulty. Neurovascular status and circulatory status are intact. - Labs CBC & Chem 7: 07/02/18 13:55 07/04/18 07:13 Labs: Microbiology - Last 24 Hours (Table) 07/03/18 15:05 Gram Stain - Preliminary Knee - Left Body Fluid Culture - Preliminary 07/03/18 15:05 Anaerobic Culture - Preliminary Knee - Left 07/02/18 13:55 Blood Culture - Preliminary Blood No Growth after 24 hours Assessment and Plan Assessment: GERD Sleep apnea Thyroid disorder Osteoarthritis (1) Septic prepatellar bursitis Current Visit: Yes Status: Acute Code(s): M71.169 - OTHER INFECTIVE BURSITIS, UNSPECIFIED KNEE SNOMED Code(s): 68416867 Plan: 1. Recommend continued warm compresses to the left knee with K-pad. 2. Continue IV antibiotics per infectious disease. 3. Aspiration of the left prepatellar bursa was performed yesterday at bedside and 4 cc of purulent yellow fluid was obtained. Cultures are pending, but Gram stain shows many polymorphonuclear leukocytes and moderate gram-positive cocci. 4. NPO 5. Patient's symptoms have not improved with warm compresses and IV antibiotics. Planning for incision and drainage of left prepatellar bursa later today pending patient consent.
--- NOTE | 2018-07-04 12:15 | P.PN ---
Subjective Progress Note Date: 07/03/18 This is a 62-year-old male patient of Drs. Osei with past medical history of hypothyroidism. Patient states he recently had his left knee checked by Dr. Farooq and was told he had some tendinitis. Patient then went to [place] and worked on remodeling a home. He developed redness and swelling to the left knee to continue to progress. He tried taking Allen and ibuprofen for pain which became much worse last evening. He also complains of fever and chills with generalized muscle aches. He also complains of cough productive. He denies abdominal symptoms. Patient came into [facility] emergency center for evaluation. He was found to be afebrile, white count 11.3, blood sugar 144, creatinine 0.82. Electrolytes and liver function tests within normal limits. Patient was started on Rocephin and vancomycin and admitted to the [facility] floor. Consult in place for Dr. Farooq and added consult for Dr. Hamilton. 07/03: Patient has been afebrile, heart rate 72, blood pressure 121/72, pulse ox 94% on room air. Patient denies any new concerns overnight. He continues to have redness and swelling to the left knee. Patient was seen by Dr. Farooq this morning with plan for heat. No surgical intervention planned. is on consult. Patient is currently on vancomycin and Rocephin was added. Review of Systems Constitutional: Denies chills, Reports fatigue, denies fever, Denies malaise, Denies poor appetite, Denies weakness, Denies weight loss Eyes: denies blurred vision, denies pain Ears, nose, mouth and throat: Reports post-nasal drip, Denies dental pain, Denies dysphagia, Denies headache, Denies hoarseness, Denies mouth pain, Denies sore throat, Denies vertigo Cardiovascular: Reports leg edema, Denies chest pain, Denies dyspnea on exertion, Denies edema, Denies lightheadedness, Denies orthopnea, Denies shortness of breath, Denies syncope Respiratory: Reports cough, Denies cough with sputum, Denies dyspnea, Denies excessive sputum, Denies hemoptysis, Denies home oxygen, Denies wheezing Gastrointestinal: Denies abdominal pain, Denies diarrhea, Denies loss of appetite, Denies nausea, Denies vomiting Genitourinary: Denies dysuria Musculoskeletal: Reports gait dysfunction, Reports myalgias, Denies frequent falls, Denies muscle weakness Musculoskeletal: left: knee pain, knee stiffness, knee swelling Integumentary: Reports color changes, Reports darkening of skin, Denies pruritus, Denies rash Neurological: Denies aphasia, Denies change in mentation, Denies change in speech, Denies headaches, Denies numbness, Denies seizures, Denies weakness Psychiatric: Denies anxiety, Denies depression Endocrine: Denies fatigue, Denies weight change Objective - Vital Signs Vital signs: Vital Signs Temp 97.8 F 07/03/18 07:00 Pulse 91 07/03/18 07:15 Resp 16 07/03/18 07:00 BP 121/72 07/03/18 07:00 Pulse Ox 94 L 07/03/18 07:00 Intake & Output 07/02/18 07/03/18 07/03/18 18:59 06:59 18:59 Intake Total 990 Balance 990 Weight 90.718 kg Intake: Intake, IV Titration 750 Amount Sodium Chloride 0.9% 1, 750 000 ml @ 75 mls/hr IV . [id number] [facility] Rx#:[id number] Oral 240 Other: # Voids 3 - Exam Gen: This is a 62-year-old male. He is sitting up in bed and appears to be comfortable and in no acute distress. HEENT: Head is atraumatic, normocephalic. Pupils equal, round. Sclerae is anicteric. NECK: Supple. No JVD. No lymphadenopathy. No thyromegaly. LUNGS: Clear to auscultation. No wheezes or rhonchi. No intercostal retractions. HEART: Regular rate and rhythm. No murmur. ABDOMEN: Soft. Bowel sounds are present. No masses. No tenderness. EXTREMITIES: No pedal edema. No calf tenderness. Significant erythema and edema with warmth to the left knee. Decreased range of motion. NEUROLOGICAL: Patient is awake, alert and oriented x3. Cranial nerves 2 through 12 are grossly intact. - Labs CBC & Chem 7: 07/02/18 13:55 07/04/18 07:13 Labs: Abnormal Lab Results - Last 24 Hours (Table) 07/02/18 07/02/18 Range/Units 13:55 13:55 WBC 11.3 H (3.8-10.6) k/uL Neutrophils # 8.7 H (1.3-7.7) k/uL Glucose 144 H (74-99) mg/dL Assessment and Plan Plan: 1. Septic bursitis left knee. Continue Rocephin and vancomycin. Consult with Dr. Farooq appreciated. No plan for surgical intervention. Heating pad ordered. Consult with Dr. Hamilton. Toradol scheduled for pain control and Allen or Tylenol available as needed. 2. Hypothyroidism. Continue levothyroxine. 3. DVT prophylaxis. Heparin subcu. 4. GI prophylaxis. Pepcid. 5. Hyperglycemia without history of diabetes. Discharge plan: Home Impression and plan of care have been directed as dictated by the signing physician. Christine Gonzalez nurse practitioner acting as scribe for signing physician.
--- NOTE | 2018-07-04 12:18 | P.PN ---
Subjective Progress Note Date: 07/04/18 This is a 62-year-old male patient of Drs. Osei with past medical history of hypothyroidism. Patient states he recently had his left knee checked by Dr. Farooq and was told he had some tendinitis. Patient then went to [place] and worked on remodeling a home. He developed redness and swelling to the left knee to continue to progress. He tried taking Cascade and ibuprofen for pain which became much worse last evening. He also complains of fever and chills with generalized muscle aches. He also complains of cough productive. He denies abdominal symptoms. Patient came into [facility] emergency center for evaluation. He was found to be afebrile, white count 11.3, blood sugar 144, creatinine 0.82. Electrolytes and liver function tests within normal limits. Patient was started on Rocephin and vancomycin and admitted to the [facility] floor. Consult in place for Dr. Farooq and added consult for Dr. Hamilton. 07/03: Patient has been afebrile, heart rate 72, blood pressure 121/72, pulse ox 94% on room air. Patient denies any new concerns overnight. He continues to have redness and swelling to the left knee. Patient was seen by Dr. Farooq this morning with plan for heat. No surgical intervention planned. is on consult. Patient is currently on vancomycin and Rocephin was added. 07/04: Patient had aspiration done yesterday 4 cc of purulent yellow fluid. Cultures were obtained. Patient states he is having I&D done today. He continues to have erythema and edema, erythema seems to be spreading. He denies any new complaints. Patient has been afebrile, heart rate 76, blood pressure 123/75, pulse ox 94% on room air. Review of Systems Constitutional: Denies chills, Reports fatigue, denies fever, Denies malaise, Denies poor appetite, Denies weakness, Denies weight loss Ears, nose, mouth and throat: Reports post-nasal drip, Denies dental pain, Denies dysphagia, Denies headache, Denies hoarseness, Denies mouth pain, Denies sore throat, Denies vertigo Cardiovascular: Reports leg edema, Denies chest pain, Denies dyspnea on exertion, Denies edema, Denies lightheadedness, Denies orthopnea, Denies shortness of breath, Denies syncope Respiratory: Reports cough, Denies cough with sputum, Denies dyspnea, Denies excessive sputum, Denies hemoptysis, Denies home oxygen, Denies wheezing Gastrointestinal: Denies abdominal pain, Denies diarrhea, Denies loss of appetite, Denies nausea, Denies vomiting Genitourinary: Denies dysuria Musculoskeletal: Reports gait dysfunction, Reports myalgias, Denies frequent falls, Denies muscle weakness Musculoskeletal: left: knee pain, knee stiffness, knee swelling Integumentary: Reports color changes, Reports darkening of skin, Denies pruritus, Denies rash Neurological: Denies aphasia, Denies change in mentation, Denies change in speech, Denies headaches, Denies numbness, Denies seizures, Denies weakness Psychiatric: Denies anxiety, Denies depression Endocrine: Denies fatigue, Denies weight change Objective - Vital Signs Vital signs: Vital Signs Temp 98.5 F 07/04/18 07:00 Pulse 76 07/04/18 07:40 Resp 17 07/04/18 07:00 BP 123/75 07/04/18 07:00 Pulse Ox 94 L 07/04/18 07:00 Intake & Output 07/03/18 07/04/18 07/04/18 18:59 06:59 18:59 Intake Total 300 460 220 Balance 300 460 220 Intake: Intake, IV Titration 300 460 Amount Sodium Chloride 0.9% 1, 210 000 ml @ 75 mls/hr IV . [id number] [facility] Rx#:[id number] Vancomycin 1,500 mg In 250 250 Sodium Chloride 0.9% 250 ml @ 125 mls/hr IVPB Q8HR [facility] Rx#:[id number] cefTRIAXone 1 gm In 50 Sodium Chloride 0.9% 50 ml @ 100 mls/hr IVPB Q24HR [facility] Rx#:[id number] Oral 220 Other: Voiding Method Toilet # Voids 1 1 - Exam Gen: This is a 62-year-old male. He is sitting up in recliner and appears to be comfortable and in no acute distress. HEENT: Head is atraumatic, normocephalic. Pupils equal, round. Sclerae is anicteric. NECK: Supple. No JVD. No lymphadenopathy. No thyromegaly. LUNGS: Clear to auscultation. No wheezes or rhonchi. No intercostal retractions. HEART: Regular rate and rhythm. No murmur. ABDOMEN: Soft. Bowel sounds are present. No masses. No tenderness. EXTREMITIES: No pedal edema. No calf tenderness. Significant erythema and edema with warmth to the left knee. Decreased range of motion. NEUROLOGICAL: Patient is awake, alert and oriented x3. Cranial nerves 2 through 12 are grossly intact. - Labs CBC & Chem 7: 07/02/18 13:55 07/04/18 07:13 Labs: Microbiology - Last 24 Hours (Table) 07/03/18 15:05 Gram Stain - Preliminary Knee - Left Body Fluid Culture - Preliminary 07/03/18 15:05 Anaerobic Culture - Preliminary Knee - Left 07/02/18 13:55 Blood Culture - Preliminary Blood No Growth after 24 hours Assessment and Plan Plan: 1. Septic bursitis left knee. Continue Rocephin and vancomycin. Consult with Dr. Farooq appreciated. Status post aspiration and plan for I&D today. Heating pad ordered. Consult with Dr. Hamilton. Toradol scheduled for pain control and Cascade or Tylenol available as needed. 2. Hypothyroidism. Continue levothyroxine. 3. DVT prophylaxis. Heparin subcu. 4. GI prophylaxis. Pepcid. 5. Hyperglycemia without history of diabetes. Discharge plan: Home Impression and plan of care have been directed as dictated by the signing physician. Christine Gonzalez nurse practitioner acting as scribe for signing physician.
[2018-07-04] MEDS ORDERED: VANCOMYCIN 1,250 MG in SODIUM CHLORIDE 0.9% 250 ML IVPB SCH (16:00)
[2018-07-04] MEDS ORDERED: IV FLUID CONTINUATION 1,000 ML IV ONE (16:35)
[2018-07-04 16:50] LABS: Glucose,Whole Blood 89 mg/dL (75-99)
[2018-07-04] MEDS ORDERED: PROPOFOL 10 MG/ML 20 ML VIAL IV ONE (17:09)
[2018-07-04] MEDS ORDERED: HYDROcodone/APAP 5-325MG 1 EACH TAB PO PRN ×2 (17:09)
[2018-07-04] MEDS ORDERED: fentaNYL (PF) 50 MCG/ML 2 ML AMP ONE (17:09)
[2018-07-04] MEDS ORDERED: SENNOSIDES-DOCUSATE SODIUM 1 EACH TAB PO PRN (17:09)
[2018-07-04] MEDS ORDERED: KETAMINE 10 MG/ML 20 ML VIAL ONE (17:09)
[2018-07-04] MEDS ORDERED: HYDROmorphone 0.5 MG/0.5 ML SYRINGE IVP PRN ×2 (17:09)
[2018-07-04] MEDS ORDERED: HYDROmorphone 1 MG/ML 1 ML SYRINGE IVP PRN (17:09)
[2018-07-04] MEDS ORDERED: ONDANSETRON 4 MG/2 ML VIAL IVP PRN (17:09)
[2018-07-04] MEDS ORDERED: MIDAZOLAM 2 MG/2 ML VIAL ONE (17:09)
--- NOTE | 2018-07-04 17:40 | P.OP ---
Date of Procedure: 07/04/18 Preoperative Diagnosis: Septic prepatellar bursitis left knee Postoperative Diagnosis: Septic prepatellar bursitis left knee Procedure(s) Performed: Incision and drainage of the prepatellar bursa left knee Anesthesia: GALDINO Surgeon: Jaime Farooq Staff Internist Office Based Only #1: Sondra Robles Estimated Blood Loss (ml): 15 Pathology: other (Cultures x 2) Condition: stable Disposition: PACU Indications for Procedure: This is a 62-year-old gentleman that presented to the emergency room with pain and redness and swelling in the anterior aspect of his left knee. He was admitted with septic prepatellar bursitis and treated initially with antibiotics. After failure of antibiotic treatment alone, I recommended a formal incision and drainage of the prepatellar bursa, and informed consent was obtained. Operative Findings: The operative findings are consistent with septic prepatellar bursitis of the left knee Description of Procedure: The patient was seen in the preoperative area consent was reviewed. The operati ve site was marked with a skin marker. The patient was then brought to the operating room and given a general anesthetic by the anesthesia department. The left knee was then prepped and draped in usual sterile fashion. A universal timeout was then performed confirming the patient's name, surgical site, ALLERGIES, and consent. The prepatellar bursa was then incised sharply with a knife with a moderate amount of purulent material expressed. Using a finger, all loculations were broken up and all fluid was expressed. Next, using pulsatile lavage, thousand liters of antibiotic solution were irrigated in the bursa. After thorough irrigation, the bursa was then lightly closed with 3-0 Vicryl followed by marquise for the skin. Sterile dressing was applied and patient was transferred recovery room stable condition Asst. ZEYNEP Childers was required due the complexity of the surgery, the need for skilled surgical garment assembler.
[2018-07-04] MEDS: HYDROmorphone 0.5 MG/0.5 ML SYRINGE IVP ONE ×2 (18:02→18:07)
[2018-07-04] MEDS ORDERED: SODIUM CHLORIDE 0.9% 1,000 ML IV ONE ×2 (18:10)
[2018-07-04] MEDS: SODIUM CHLORIDE 0.9% 1,000 ML IV SCH (19:16)
--- NOTE | 2018-07-04 22:45 | P.PN ---
Subjective Progress Note Date: 07/04/18 This is a 62-year-old male patient with past medical history of hypothyroidism. Patient states he recently had his left knee checked by Dr. Farooq and was told he had some tendinitis. Patient then went to [place] and worked on remodeling a home. He developed redness and swelling to the left knee to c shahramue to progress. He tried taking [place] and ibuprofen for pain which became much worse last evening. He also complains of fever and chills with generalized muscle aches. He also complains of cough productive. He denies abdominal symptoms. Patient came into [facility] emergency center for evaluation. He was found to be afebrile, white count 11.3, blood sugar 144, creatinine 0.82. Electrolytes and liver function tests within normal limits. Patient was started on Rocephin and vancomycin and admitted to the [facility] floor. Consult in place for Dr. Farooq. Blood cultures are status received. 07/04/2018 patient has returned from the operating room where the incision and drainage of the prepatellar bursa has been performed. Some postoperative pain but otherwise is feeling better. No fevers or chills. Objective - Vital Signs Vital signs: Vital Signs Temp 97.5 F L 07/04/18 19:45 Pulse 79 07/04/18 21:30 Resp 16 07/04/18 19:45 BP 126/85 07/04/18 21:30 Pulse Ox 91 L 07/04/18 21:30 Intake & Output 07/04/18 07/04/18 07/05/18 06:59 18:59 06:59 Intake Total 460 770 Output Total 15 Balance 460 755 Intake: IV 550 Intake, IV Titration 460 Amount Sodium Chloride 0.9% 1, 210 000 ml @ 75 mls/hr IV . [id number] [facility] Rx#:[id number] Vancomycin 1,500 mg In 250 Sodium Chloride 0.9% 250 ml @ 125 mls/hr IVPB Q8HR [facility] Rx#:[id number] Oral 220 Output: Estimated Blood Loss 15 Other: Voiding Method Toilet # Voids 1 2 - Exam Pleasant 62-year-old male comfortable post surgery HEENT: Anicteric conjunctiva are pink and moist nasal mucosa grossly intact without significant lesions, there is no thrush. Neck: The neck is supple without significant lymphadenopathy or thyromegaly. Lungs: Good bilateral air entry without significant crackles or wheezing. There is no significant bronchial sounds. There is no egophony or dullness. Heart: Regular rate and rhythm with an audible S1-S2, no S3 no S4. There is no significant murmur click or rub, PMI was nondisplaced. Abdomen: Positive bowel sounds soft and nontender without palpable masses or organomegaly. There was no guarding or rebound. Extremities: The upper extremities have excellent pulses they are symmetric, no significant petechiae or telangiectasia. No splinter hemorrhages were noted. The right lower extremity without acute abnormalities. Left knee shows of the surgical dressing in place from the just completed incision and drainage the prepatellar bursa. Neuro: Awake alert oriented to person place and time. There are no acute new gross focal sensory motor deficits. - Labs CBC & Chem 7: 07/02/18 13:55 07/04/18 07:13 Labs: Microbiology - Last 24 Hours (Table) 07/04/18 17:43 Anaerobic Culture - Preliminary Knee - Left 07/04/18 17:43 Wound Culture - Preliminary Knee - Left 07/04/18 17:43 Wound Culture - Preliminary Knee - Left 07/04/18 17:43 Anaerobic Culture - Preliminary Knee - Left 07/02/18 13:55 Blood Culture - Preliminary Blood No Growth after 48 hours 07/03/18 15:05 Gram Stain - Preliminary Knee - Left Body Fluid Culture - Preliminary Presumptive Staph aureus 07/03/18 15:05 Anaerobic Culture - Preliminary Knee - Left Laboratory Results WBC 11.3 k/uL (3.8-10.6) H 07/02/18 13:55 RBC 4.96 m/uL (4.30-5.90) 07/02/18 13:55 Hgb 14.5 gm/dL (13.0-17.5) 07/02/18 13:55 Hct 41.2 % (39.0-53.0) 07/02/18 13:55 MCV 83.1 fL (80.0-100.0) 07/02/18 13:55 MCH 29.2 pg (25.0-35.0) 07/02/18 13:55 MCHC 35.1 g/dL (31.0-37.0) 07/02/18 13:55 RDW 12.7 % (11.5-15.5) 07/02/18 13:55 Plt Count 197 k/uL (150-450) 07/02/18 13:55 Neutrophils % 77 % 07/02/18 13:55 Lymphocytes % 13 % 07/02/18 13:55 Monocytes % 7 % 07/02/18 13:55 Eosinophils % 2 % 07/02/18 13:55 Basophils % 0 % 07/02/18 13:55 Neutrophils # 8.7 k/uL (1.3-7.7) H 07/02/18 13:55 Lymphocytes # 1.4 k/uL (1.0-4.8) 07/02/18 13:55 Monocytes # 0.8 k/uL (0-1.0) 07/02/18 13:55 Eosinophils # 0.2 k/uL (0-0.7) 07/02/18 13:55 Basophils # 0.0 k/uL (0-0.2) 07/02/18 13:55 Sodium 140 mmol/L (137-145) 07/04/18 07:13 Potassium 3.9 mmol/L (3.5-5.1) 07/04/18 07:13 Chloride 107 mmol/L (98-107) 07/04/18 07:13 Carbon Dioxide 27 mmol/L (22-30) 07/04/18 07:13 Anion Gap 6 mmol/L 07/04/18 07:13 BUN 19 mg/dL (9-20) 07/04/18 07:13 Creatinine 0.88 mg/dL (0.66-1.25) 07/04/18 07:13 Est GFR (CKD-EPI)AfAm >90 (>60 ml/min/1.73 sqM) 07/04/18 07:13 Est GFR (CKD-EPI)NonAf >90 (>60 ml/min/1.73 sqM) 07/04/18 07:13 Glucose 96 mg/dL (74-99) 07/04/18 07:13 POC Glucose (mg/dL) 89 mg/dL (75-99) 07/04/18 16:48 POC Glu [employer]ision Lens Generator Nancy Holt 07/04/18 16:[address] Glu mg/dL 91 07/02/18 13:55 Hemoglobin A1c 4.8 % (4.0-6.0) 07/02/18 13:55 Plasma Lactic Acid Florentino 1.4 mmol/L (0.7-2.0) 07/02/18 13:55 Calcium 8.5 mg/dL (8.4-10.2) 07/04/18 07:13 Total Bilirubin 0.7 mg/dL (0.2-1.3) 07/02/18 13:55 AST 21 U/L (17-59) 07/02/18 13:55 ALT 22 U/L (21-72) 07/02/18 13:55 Alkaline Phosphatase 84 U/L (38-126) 07/02/18 13:55 Total Protein 6.8 g/dL (6.3-8.2) 07/02/18 13:55 Albumin 4.0 g/dL (3.5-5.0) 07/02/18 13:55 Vancomycin Trough 18.1 ug/mL 07/04/18 07:13 Microbiology 07/04/18 17:43 Knee - Left Anaerobic Culture - Preliminary 07/04/18 17:43 Knee - Left Wound Culture - Preliminary 07/04/18 17:43 Knee - Left Wound Culture - Preliminary 07/04/18 17:43 Knee - Left Anaerobic Culture - Preliminary 07/02/18 13:55 Blood Blood Culture - Preliminary No Growth after 48 hours 07/03/18 15:05 Knee - Left Gram Stain - Preliminary 07/03/18 15:05 Knee - Left Body Fluid Culture - Preliminary Presumptive Staph aureus 07/03/18 15:05 Knee - Left Anaerobic Culture - Preliminary Assessment and Plan (1) Septic prepatellar bursitis Current Visit: Yes Status: Acute Code(s): M71.169 - OTHER INFECTIVE BURSITIS, UNSPECIFIED KNEE SNOMED Code(s): 62738762 (2) Staph aureus infection Narrative/Plan: 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 He did have on some kneepads but because he was sweating they didn't stay in place and he did not continuously reposition them. He did recognize that he had some trauma to his knees. And now has developed evidence of the significant left prepatellar bursitis. I did the pleasure of discussing the case with orthopedic surgery and they will aspirate the site for cultures will also help with more rapid resolution of the underlying infectious process. Antimicrobial therapy with vancomycin and Rocephin has been started. Pain control with ketorolac is an excellent choice. Warmth is being applied for pain control. Cultures from the site will help determine course of antibiotic therapy at discharge. 07/04/2018 patient is now had the surgical incision and drainage of the left prepatellar bursa. Likely a staphylococcal infection. Given the significance of the infection will planning on an outpatient course of intravenous antibiotic therapy. Will request evaluation for coverage for Rocephin 2 g a day. We'll request midline catheter. Current Visit: Yes Status: Acute Code(s): A49.01 - METHICILLIN SUSCEP STAPH INFECTION, UNSP SITE SNOMED Code(s): 462367278
[2018-07-05] MEDS: KETOROLAC 30 MG/ML 1 ML VIAL IVP SCH ×3 (03:56→11:20)
[2018-07-05] MEDS: LEVOTHYROXINE 125 MCG TAB PO SCH (05:13)
[2018-07-05] MEDS: VANCOMYCIN 1,250 MG in SODIUM CHLORIDE 0.9% 250 ML IVPB SCH ×2 (05:13→12:22)
[2018-07-05] MEDS: ACETAMINOPHEN TAB 325 MG TAB PO PRN (08:10)
--- NOTE | 2018-07-05 08:33 | P.PN ---
Subjective Progress Note Date: 07/05/18 This is a 62-year-old male who is admitted for septic left prepatellar bursitis. Patient is status post incision and drainage of the left prepatellar bursa. This is postoperative day #1. Patient is seen and evaluated at bedside. Patient states that he has some postoperative pain, but overall his pain is controlled. Patient states that he has been using the heating pad. Patient mariangel es any new complaints today. denies any fever/chills, numbness, weakness, tingling, abdominal pain, shortness of breath or chest pain. Objective - Vital Signs Vital signs: Vital Signs Temp 98.4 F 07/05/18 07:24 Pulse 79 07/05/18 07:24 Resp 16 07/05/18 07:24 BP 131/78 07/05/18 07:24 Pulse Ox 95 07/05/18 07:24 Intake & Output 07/04/18 07/05/18 07/05/18 18:59 06:59 18:59 Intake Total 770 1980 Output Total 15 Balance 755 1980 Intake: IV 550 Intake, IV Titration 900 Amount Sodium Chloride 0.9% 1, 650 000 ml @ 65 mls/hr IV . [id number] [facility] Rx#:[id number] Vancomycin 1,250 mg In 250 Sodium Chloride 0.9% 250 ml @ 125 mls/hr IVPB Q8H [facility] Rx#:[id number] Oral 220 1080 Output: Estimated Blood Loss 15 Other: # Voids 2 3 - Exam Vital signs are stable. Patient is in no acute distress and is alert and oriented 3. Suman are intact. There is mild drainage present. There is mild swelling and erythema over the anterior aspect of the left knee. This area is mildly tender to palpation. Calf is soft and nontender to palpation. Patient has full foot and ankle motion without pain or difficulty. Neurovascular status and circulatory status are intact. - Labs CBC & Chem 7: 07/02/18 13:55 07/04/18 07:13 Labs: Microbiology - Last 24 Hours (Table) 07/04/18 17:43 Gram Stain - Preliminary Knee - Left Wound Culture - Preliminary 07/04/18 17:43 Gram Stain - Preliminary Knee - Left Wound Culture - Preliminary 07/04/18 17:43 Anaerobic Culture - Preliminary Knee - Left 07/04/18 17:43 Anaerobic Culture - Preliminary Knee - Left 07/02/18 13:55 Blood Culture - Preliminary Blood No Growth after 48 hours 07/03/18 15:05 Gram Stain - Preliminary Knee - Left Body Fluid Culture - Preliminary Presumptive Staph aureus Assessment and Plan Assessment: GERD Sleep apnea Thyroid disorder Osteoarthritis (1) Septic prepatellar bursitis Current Visit: Yes Status: Acute Code(s): M71.169 - OTHER INFECTIVE BURSITIS, UNSPECIFIED KNEE SNOMED Code(s): 36703690 Plan: 1. Continue routine postoperative care and pain control. 2. [place] to be removed 10 days postoperatively. Daily dressing changes. 3. IV antibiotics per infectious disease. Patient is awaiting midline catheter placement for home IV antibiotics. 4. Continue warm compresses to the left knee. 5. Will continue to follow the patient closely.
[2018-07-05] MEDS: SODIUM CHLORIDE 0.9% 1,000 ML IV SCH (11:19)
[2018-07-05 13:32] VITALS: BP 134/79; PULSE 81; RESP 18; TEMP 98.5
--- NOTE | 2018-07-05 14:28 | P.DS ---
Providers Date of admission: 07/03/18 10:40 Expected date of discharge: 07/05/18 Attending physician: Veda Joyce Consults: 07/02/18 13:39 Consult Physician Urgent Consulting Provider: Jaime Farooq Consult Reason/Comments: Septic bursitis patella Do you want consulting provider notified?: Yes 07/02/18 14:48 Consult Physician Routine Consulting Provider: Raúl Hamilton Consult Reason/Comments: Septic bursitis Do you want consulting provider notified?: Yes Primary care physician: [facility] Course: This is a 62-year-old male patient of Drs. Osei with past medical history of hypothyroidism. Patient states he recently had his left knee checked by Dr. Farooq and was told he had some tendinitis. Patient then went to [place] and worked on remodeling a home. He developed redness and swelling to the left knee to continue to progress. He tried taking [place] and ibuprofen for pain which became much worse last evening. He also complains of fever and chills with generalized muscle aches. He also complains of cough productive. He denies abdominal symptoms. Patient came into [facility] emergency center for evaluation. He was found to be afebrile, white count 11.3, blood sugar 144, creatinine 0.82. Electrolytes and liver function tests within normal limits. Patient was started on Rocephin and vancomycin [facility] Consult in place for Dr. Farooq and added consult for Dr. Hamilton. 07/03: Patient has been afebrile, heart rate 72, blood pressure 121/72, pulse ox 94% on room air. Patient denies any new concerns overnight. He continues to have redness and swelling to the left knee. Patient was seen by Dr. Farooq this morning with plan for heat. No surgical intervention planned. is on consult. Patient is currently on vancomycin and Rocephin was added. 07/04: Patient had aspiration done yesterday 4 cc of purulent yellow fluid. Cultures were obtained. Patient states he is having I&D done today. He continues to have erythema and edema, erythema seems to be spreading. He denies any new complaints. Patient has been afebrile, heart rate 76, blood pressure 123/75, pulse ox 94% on room air. 07/05: Patient underwent I&D of the prepatellar bursa yesterday with Dr. Farooq. Patient has been seen seen and followed by Dr. Hamilton and he has arranged for home IV antibiotics with Rocephin. Case management has confirmed that all arrangements are set up for home IV antibiotics. Orthopedics has cleared the patient for discharge. His pain is currently controlled and he has not been requiring IV pain medications and he has not been taking [place]. Midline has been placed. The patient will be discharged home today in stable condition. Discharge diagnoses: 1. Septic bursitis left knee. 2. Hypothyroidism. 3. Hyperglycemia without history of diabetes. Discharge plan: Home with the gland home care and home IV antibiotic therapy. Impression and plan of care have been directed as dictated by the signing physician. Christine Gonzalez nurse practitioner acting as scribe for signing physician. Patient Condition at Discharge: Good Plan - Discharge Summary Discharge Rx Participant: No New Discharge Prescriptions: New cefTRIAXone [Rocephin] 2,000 mg IVPB Q24HR #21 vial No Action Levothyroxine Sodium [Synthroid] 125 mcg PO DAILY Ibuprofen [Motrin Ib] 200 - 600 mg PO Q6H PRN PRN Reason: Pain [place](Unknown Dose) 1 tab PO ONCE PRN PRN Reason: Pain Discharge Medication List Levothyroxine Sodium [Synthroid] 125 mcg PO DAILY 03/05/16 [History] Ibuprofen [Motrin Ib] 200 - 600 mg PO Q6H PRN 07/02/18 [History] [place](Unknown Dose) 1 tab PO ONCE PRN 07/02/18 [History] cefTRIAXone [Rocephin] 2,000 mg IVPB Q24HR #21 vial 07/04/18 [Rx] Acetaminophen Tab [Tylenol] 650 mg PO Q4-6H PRN tab 07/05/18 [Rx] Follow up Appointment(s)/Referral(s): aRúl Hamilton MD [STAFF PHYSICIAN] - 3 Weeks Raúl Serna MD [Primary Care Provider] - 1 Week Jaime Farooq DO [Doctor of Osteopathic Medicine] - 10 Days Activity/Diet/Wound Care/Special Instructions: Mallie to be removed 10 days postoperatively. Daily dressing changes. Discharge Disposition: HOME SELF-CARE
--- NOTE | 2018-07-05 22:38 | P.PN ---
Subjective Progress Note Date: 07/05/18 This is a 62-year-old male patient with past medical history of hypothyroidism. Patient states he recently had his left knee checked by Dr. Farooq and was told he had some tendinitis. Patient then went to [place] and worked on remodeling a home. He developed redness and swelling to the left knee to kemar omalleyue to progress. He tried taking [place] and ibuprofen for pain which became much worse last evening. He also complains of fever and chills with generalized muscle aches. He also complains of cough productive. He denies abdominal symptoms. Patient came into [facility] emergency center for evaluation. He was found to be afebrile, white count 11.3, blood sugar 144, creatinine 0.82. Electrolytes and liver function tests within normal limits. Patient was started on Rocephin and vancomycin and admitted to the [facility] floor. Consult in place for Dr. Farooq. Blood cultures are status received. 07/04/2018 patient has returned from the operating room where the incision and drainage of the prepatellar bursa has been performed. Some postoperative pain but otherwise is feeling better. No fevers or chills. 07/05/2018 patient is doing well after his incision and drainage of the patella bursa infection. Dressing changes been effective today. Pain is better controlled. He is up and ambulate without great difficulties. No fevers or chills. Culture final. Objective - Vital Signs Vital signs: Vital Signs Temp 98.5 F 07/05/18 13:29 Pulse 81 07/05/18 13:29 Resp 18 07/05/18 13:29 BP 134/79 07/05/18 13:29 Pulse Ox 96 07/05/18 13:29 Intake & Output 07/05/18 07/05/18 07/06/18 06:59 18:59 06:59 Intake Total 1979 Balance 1979 Intake: Intake, IV Titration 900 Amount Sodium Chloride 0.9% 1, 650 000 ml @ 65 mls/hr IV . [id number] KATHERINE Rx#:[id number] Vancomycin 1,250 mg In 250 Sodium Chloride 0.9% 250 ml @ 125 mls/hr IVPB Q8H KATHERINE Rx#:[id number] Oral 1080 Other: Voiding Method Toilet # Voids 3 1 - Exam Pleasant 62-year-old male comfortable post surgery HEENT: Anicteric conjunctiva are pink and moist nasal mucosa grossly intact without significant lesions, there is no thrush. Neck: The neck is supple without significant lymphadenopathy or thyromegaly. Lungs: Good bilateral air entry without significant crackles or wheezing. There is no significant bronchial sounds. There is no egophony or dullness. Heart: Regular rate and rhythm with an audible S1-S2, no S3 no S4. There is no significant murmur click or rub, PMI was nondisplaced. Abdomen: Positive bowel sounds soft and nontender without palpable masses or organomegaly. There was no guarding or rebound. Extremities: The upper extremities have excellent pulses they are symmetric, no significant petechiae or telangiectasia. No splinter hemorrhages were noted. The right lower extremity without acute abnormalities. Left knee shows intact dressing with no significant breakthrough drainage Neuro: Awake alert oriented to person place and time. There are no acute new gr oss focal sensory motor deficits. - Labs CBC & Chem 7: 07/02/18 13:55 07/04/18 07:13 Labs: Microbiology - Last 24 Hours (Table) 07/04/18 17:43 Gram Stain - Preliminary Knee - Left Wound Culture - Preliminary Presumptive Staph aureus 07/04/18 17:43 Gram Stain - Preliminary Knee - Left Wound Culture - Preliminary Presumptive Staph aureus 07/03/18 15:05 Anaerobic Culture - Preliminary Knee - Left 07/02/18 13:55 Blood Culture - Preliminary Blood No Growth after 72 hours 07/03/18 15:05 Gram Stain - Final Knee - Left Body Fluid Culture - Final Staphylococcus aureus 07/04/18 17:43 Anaerobic Culture - Preliminary Knee - Left 07/04/18 17:43 Anaerobic Culture - Preliminary Knee - Left Laboratory Results WBC 11.3 k/uL (3.8-10.6) H 07/02/18 13:55 RBC 4.96 m/uL (4.30-5.90) 07/02/18 13:55 Hgb 14.5 gm/dL (13.0-17.5) 07/02/18 13:55 Hct 41.2 % (39.0-53.0) 07/02/18 13:55 MCV 83.1 fL (80.0-100.0) 07/02/18 13:55 MCH 29.2 pg (25.0-35.0) 07/02/18 13:55 MCHC 35.1 g/dL (31.0-37.0) 07/02/18 13:55 RDW 12.7 % (11.5-15.5) 07/02/18 13:55 Plt Count 197 k/uL (150-450) 07/02/18 13:55 Neutrophils % 77 % 07/02/18 13:55 Lymphocytes % 13 % 07/02/18 13:55 Monocytes % 7 % 07/02/18 13:55 Eosinophils % 2 % 07/02/18 13:55 Basophils % 0 % 07/02/18 13:55 Neutrophils # 8.7 k/uL (1.3-7.7) H 07/02/18 13:55 Lymphocytes # 1.4 k/uL (1.0-4.8) 07/02/18 13:55 Monocytes # 0.8 k/uL (0-1.0) 07/02/18 13:55 Eosinophils # 0.2 k/uL (0-0.7) 07/02/18 13:55 Basophils # 0.0 k/uL (0-0.2) 07/02/18 13:55 Sodium 140 mmol/L (137-145) 07/04/18 07:13 Potassium 3.9 mmol/L (3.5-5.1) 07/04/18 07:13 Chloride 107 mmol/L (98-107) 07/04/18 07:13 Carbon Dioxide 27 mmol/L (22-30) 07/04/18 07:13 Anion Gap 6 mmol/L 07/04/18 07:13 BUN 19 mg/dL (9-20) 07/04/18 07:13 Creatinine 0.88 mg/dL (0.66-1.25) 07/04/18 07:13 Est GFR (CKD-EPI)AfAm >90 (>60 ml/min/1.73 sqM) 07/04/18 07:13 Est GFR (CKD-EPI)NonAf >90 (>60 ml/min/1.73 sqM) 07/04/18 07:13 Glucose 96 mg/dL (74-99) 07/04/18 07:13 POC Glucose (mg/dL) 89 mg/dL (75-99) 07/04/18 16:48 POC Glu Nuclear Medicine Technologist ID Nancy Trujillo 07/04/18 16:[address] Glu mg/dL 91 07/02/18 13:55 Hemoglobin A1c 4.8 % (4.0-6.0) 07/02/18 13:55 Plasma Lactic Acid Florentino 1.4 mmol/L (0.7-2.0) 07/02/18 13:55 Calcium 8.5 mg/dL (8.4-10.2) 07/04/18 07:13 Total Bilirubin 0.7 mg/dL (0.2-1.3) 07/02/18 13:55 AST 21 U/L (17-59) 07/02/18 13:55 ALT 22 U/L (21-72) 07/02/18 13:55 Alkaline Phosphatase 84 U/L (38-126) 07/02/18 13:55 Total Protein 6.8 g/dL (6.3-8.2) 07/02/18 13:55 Albumin 4.0 g/dL (3.5-5.0) 07/02/18 13:55 Vancomycin Trough 18.1 ug/mL 07/04/18 07:13 Microbiology 07/04/18 17:43 Knee - Left Gram Stain - Preliminary 07/04/18 17:43 Knee - Left Wound Culture - Preliminary Presumptive Staph aureus 07/04/18 17:43 Knee - Left Gram Stain - Preliminary 07/04/18 17:43 Knee - Left Wound Culture - Preliminary Presumptive Staph aureus 07/03/18 15:05 Knee - Left Anaerobic Culture - Preliminary 07/02/18 13:55 Blood Blood Culture - Preliminary No Growth after 72 hours 07/03/18 15:05 Knee - Left Gram Stain - Final 07/03/18 15:05 Knee - Left Body Fluid Culture - Final Staphylococcus aureus 07/04/18 17:43 Knee - Left Anaerobic Culture - Preliminary 07/04/18 17:43 Knee - Left Anaerobic Culture - Preliminary Assessment and Plan (1) Septic prepatellar bursitis Status: Acute Code(s): M71.169 - OTHER INFECTIVE BURSITIS, UNSPECIFIED KNEE SNOMED Code(s): 70429205 (2) Staph aureus infection Narrative/Plan: 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 He did have on some kneepads but because he was sweating they didn't stay in place and he did not continuously reposition them. He did recognize that he had some trauma to his knees. And now has developed evidence of the significant left prepatellar bursitis. I did the pleasure of discussing the case with orthopedic surgery and they will aspirate the site for cultures will also help with more rapid resolution of the underlying infectious process. Antimicrobial therapy with vancomycin and Rocephin has been started. Pain control with ketorolac is an excellent choice. Warmth is being applied for pain control. Cultures from the site will help determine course of antibiotic therapy at discharge. 07/04/2018 patient is now had the surgical incision and drainage of the left prepatellar bursa. Likely a staphylococcal infection. Given the significance of the infection will planning on an outpatient course of intravenous antibiotic therapy. Will request evaluation for coverage for Rocephin 2 g a day. We'll request midline catheter. 07/05/2017 patient is status post incision and drainage of left prepatellar bursa infection. Feeling considerably better today. With the dressing in place is able to ambulate in the room without difficulties. No fevers or chills is tolerating antibiotic therapy well. He will the outpatient setting to receive his Rocephin 2 g a day for 21 days via the midline catheter. Weekly blood work requested. Follow up in the office. Status: Acute Code(s): A49.01 - METHICILLIN [facility]P [facility] Code(s): 279167342
== END 2018-07-05 16:01 | disposition home or self-care (01) | DRG 502 ==
LOC: EC 12:58 → 4SSUR 13:39 → OBSVTOIN 07-03 10:40
PROVIDERS: ADMIT Internal Medicine; ATTEND Internal Medicine
PROC: 0S9D3ZX Drainage of Left Knee Joint, Percutaneous Approach, Diagnostic (ICD-10-PCS; 2018-07-03)
PROC: 0M9P0ZZ Drainage of Left Knee Bursa and Ligament, Open Approach (ICD-10-PCS; principal; 2018-07-04 09:00)
PROC: 05HF33Z Insertion of Infusion Device into Left Cephalic Vein, Percutaneous Approach (ICD-10-PCS; 2018-07-05)
DX: M71.162 Other infective bursitis, left knee (principal); R13.10 Dysphagia, unspecified; E03.9 Hypothyroidism, unspecified; I34.1 Nonrheumatic mitral (valve) prolapse; G47.33 Obstructive sleep apnea (adult) (pediatric); K21.9 Gastro-esophageal reflux disease without esophagitis; I45.10 Unspecified right bundle-branch block; R73.9 Hyperglycemia, unspecified; Z79.890 Hormone replacement therapy; Z87.891 Personal history of nicotine dependence; Z98.52 Vasectomy status; Z98.890 Other specified postprocedural states; Z99.89 Dependence on other enabling machines and devices; Z86.2 Personal history of diseases of the blood and blood-forming organs and certain disorders involving the immune mechanism; Z82.49 Family history of ischemic heart disease and other diseases of the circulatory system; Z80.0 Family history of malignant neoplasm of digestive organs; Z80.8 Family history of malignant neoplasm of other organs or systems; Z82.79 Family history of other congenital malformations, deformations and chromosomal abnormalities; M19.90 Unspecified osteoarthritis, unspecified site; B95.61 Methicillin susceptible Staphylococcus aureus infection as the cause of diseases classified elsewhere
CPT/HCPCS: 36410; 36415; 76937; 80048; 80053; 80202; 83036; 83605; 85025; 87040; 87070; 87075; 87077; 87186; 87205; 93005; 96365; 96375; 99285

== ENCOUNTER → 2018-07-24 | Outpatient (CLI) | payer OTHER ==
--- NOTE | 2018-07-24 19:49 | PN ---
PROGRESS NOTE SLEEP CENTER PROGRESS NOTE: This is a 62-year-old male patient coming in for an annual check regarding his TRUE. Patient has severe TRUE with an AHI of 47, and he is on CPAP at a pressure of 10 cm of water. His weight has been stable. He has been utilizing his CPAP on an average of 8.4 hours per night. His AHI is down to 0.8 while on treatment. Leak factor is 26 L/minute. He is using small-sized AirFit P10 nose pillows. He is doing extremely well. No complaints otherwise for now. REVIEW OF SYSTEMS: Fourteen-point review of systems was done. Positive findings are all mentioned above in the history of present illness. The patient has no specific complaints. No sinus allergies. No post-nasal drainage. No nausea. No vomiting. No aerophagia. No hypersomnia or tiredness or sleepiness during the day. No fatigue. PHYSICAL EXAMINATION: VITAL SIGNS: BP is 138/83, pulse 72, respirations 16, temperature 97.0, saturation 97% on room air. Weight is 203, height 5 feet 9 inches. GENERAL APPEARANCE: Calm, comfortable. Head is atraumatic, normocephalic. NECK: Supple. There is no JVD. No goiter or neck masses. LUNGS: Diminished; otherwise clear. HEART: Heart sounds are regular rate and rhythm. Normal S1, S2. No S3, S4. No murmurs. ABDOMEN: Soft, nontender. No organomegaly. EXTREMITIES: No edema. No cyanosis or clubbing. NEUROLOGIC: Alert and oriented x3. No focal neurological deficits. PSYCHIATRIC: Negative for anxiety or depression. Skin is negative for any wounds or ulceration. IMPRESSION: 1. Symptomatic obstructive sleep apnea, apnea/hypopnea index of 26, currently on CPAP at a pressure of 10. He continues to be compliant. 2. Hypersomnia, recovered. 3. Polycythemia related to sleep apnea. PLAN: 1. Continue the same CPAP pressure. 2. Renew supplies. 3. Treatment is successful. 4. Encourage weight loss. 5. See me back in a few years' time in followup, earlier if needed. His [place] score is down to 3 and he is successfully treated. MMODL / IJN: [id number] /
== END | disposition home or self-care (01) ==
LOC: SLEEP 15:02
PROVIDERS: ATTEND Internal Medicine Critical Care Medicine
DX: G47.33 Obstructive sleep apnea (adult) (pediatric) (principal); D75.1 Secondary polycythemia; Z99.89 Dependence on other enabling machines and devices

== ENCOUNTER 2018-12-07 07:57 | Day surgery (SDC) | payer OTHER ==
[2018-12-05 14:37] VITALS: BMI 27.9
[~2018-12-07 07:57] MED LIST: LACTATED RINGERS 1,000 ML IV SCH; LIDOCAINE 1% 20 ML VIAL (10MG/ML) FOR IV START INTRADERMA PRN
[2018-12-07 08:22] VITALS: RESP 16; TEMP 98.2
[2018-12-07 08:30] LABS: Glucose,Whole Blood 100 mg/dL (75-99)
[2018-12-07] MEDS ORDERED: PROPOFOL 10 MG/ML 20 ML VIAL IV ONE (08:30)
[2018-12-07] MEDS ORDERED: LIDOCAINE 1% INJ 10MG/ML (20 ML MDV) ONE (08:30)
--- NOTE | 2018-12-07 08:56 | P.PCN ---
Date of Procedure: 12/07/18 Procedure(s) Performed: BRIEF HISTORY: Patient is a 62-year-old pleasant male scheduled for an elective colonoscopy as a part of screening for colorectal neoplasia. PROCEDURE PERFORMED: Colonoscopy. PREOPERATIVE DIAGNOSIS: Screening for colon cancer. IV sedation per Anesthesia. PROCEDURE: After informed consent was obtained, the patient, was brought into the endoscopy unit. IV sedation was administered by Anesthesia under continuous monitoring. Digital rectal examination was normal. Initially the Olympus CF-160 flexible video colonoscope was then inserted in the rectum, gradually advanced into the cecum without any difficulty. Careful examination was performed as the scope was gradually being withdrawn. Ileocecal valve and the appendiceal orifice were visualized and appeared normal. Prep was excellent. Mucosa of the cecum, ascending colon, transverse colon, descending colon, sigmoid colon, and rectum appeared normal. Retroflexion was performed in the rectum and no lesions were seen. The patient tolerated the procedure well. IMPRESSION: Normal-appearing colon from rectum to cecum with no evidence of colorectal neoplasia. RECOMMENDATIONS: Findings of this examination were discussed with the patient as well as his family. He was advised to have a repeat screening colonoscopy in 10 years.
[2018-12-07 09:20] VITALS: BP 135/84; PULSE 66
== END 2018-12-07 09:50 | disposition home or self-care (01) ==
LOC: ORWHC2ENDO 07:57
PROVIDERS: ATTEND Internal Medicine Gastroenterology
DX: Z12.11 Encounter for screening for malignant neoplasm of colon (principal); G47.33 Obstructive sleep apnea (adult) (pediatric); E07.9 Disorder of thyroid, unspecified; Z79.890 Hormone replacement therapy
CPT/HCPCS: J2001; J2704; G0121

== ENCOUNTER → 2021-02-04 | Outpatient (CLI) | payer OTHER ==
--- NOTE | 2021-02-04 15:09 | MR ---
EXAMINATION TYPE: MR cervical spine wo con DATE OF EXAM: 02/04/2021 1:11 PM COMPARISON: NONE HISTORY: Dizziness, vision concerns Multiplanar MultiSpin echo imaging of the cervical spine was performed. Comparison: none C2-C3: No evidence for degenerative disc disease. No disc bulge/herniation or protrusion. No Canal stenosis. Foramina are patent bilaterally. C3-C4: No evidence for degenerative disc disease. No disc bulge/herniation or protrusion. No Canal stenosis. Foramina are patent bilaterally. C4-C5: No evidence for degenerative disc disease. No disc bulge/herniation or protrusion. No Canal stenosis. Foramina are patent bilaterally. C5-C6: Mild decreased signal loss of height compatible with degenerative disc disease. Right paracent ral disc bulge resulting in right foraminal encroachment. No evidence for central stenosis or disc he rniation. Left neural foramen is patent. C6-C7: Mild degenerative disc disease. Posterior central disc bulge. No evidence for herniation protr usion or central stenosis. No foraminal encroachment. C7-T1: No evidence for degenerative disc disease. No disc bulge/herniation or protrusion. No Canal stenosis. Foramina are patent bilaterally. Cervical segments are intact. There is normal alignment. Cervical spinal cord is of normal signal. Craniovertebral junction relationships are within normal limits. IMPRESSION: 1. Degenerative disc disease with disc bulging as discussed above. Right neural foraminal encroachme nt at C5-6.
== END ==
LOC: RADMRIMAIN 11:58
PROVIDERS: ATTEND Internal Medicine Geriatric Medicine
DX: M50.323 Other cervical disc degeneration at C6-C7 level (principal); R42 Dizziness and giddiness
CPT/HCPCS: 72141

== ENCOUNTER → 2022-11-22 | Outpatient (CLI) | payer MEDICARE ==
--- NOTE | 2022-11-22 14:35 | P.SLEEP ---
History of Present Illness H&P Date: 11/22/22 This is a 66-year-old male patient, known history of obstructive sleep apnea was coming in after several years of interruption to be reevaluated. The patient was diagnosed having TRUE and the patient has a severe disease with an AHI of 41 and the patient was being treated with a CPAP pressure of 10 cm of water. His last compliancy check was done on 07/24/2018 and back then, the patient she was successful. Over the past 4 years, the patient has remained very compliant to CPAP. He is interested in updating his CPAP unit. He continues to have having difficulties with snoring and nasal congestion and plugging and nighttime arousals for choking and gasping especially when he doesn't use his CPAP. Fortunately, he has remained compliant to CPAP therapy and this is well reflected in his compliance data as the patient is averaging about 8 hours and 21 minutes of CPAP use per night and his overall compliancy over the past 30 days at 100% and his leak is around 36 L/m and his AHI is down to 0.8 while being on treatment. I also noted that the patient has made his own adjustment that he has raised his CPAP pressure of 11.2 cm of water on his machine. He is going to bed at around 10 PM, waking of 7 AM in the morning and is averaging about 7 hours of sleep. He has an Spencer score of 6. Comorbidities unchanged. Weight is unchanged. No alcoholism. No substance abuse. No head trauma. No stroke. No other complications related to obstructive sleep apnea. He is currently using an Airfit F20 medium-size fullface mask. Review of Systems A full review of system was done and the positive findings are mentioned above history of present illness. 14 point review of system was done and completed. Past Medical History Past Medical History: GERD/Reflux, Osteoarthritis (OA), Sleep Apnea/CPAP/BIPAP, Thyroid Disorder Additional Past Medical History / Comment(s): hypoglycemia, hypothyroid, MVP, TRUE with Cpap use, slight dysphagia History of Any Multi-Drug Resistant Organisms: None Reported Past Surgical History: Heart Catheterization, Orthopedic Surgery Additional Past Surgical History / Comment(s): rhinoplasty, Rt tricep tendon repair, vasectomy, EGD/COLONOSCOPY Past Anesthesia/Blood Transfusion Reactions: Postoperative Nausea & Vomiting (PONV) Past Psychological History: No Psychological Hx Reported Additional Psychological History / Comment(s): Pt resides with his spouse. 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 He is independent. Past Alcohol Use History: None Reported Additional Past Alcohol Use History / Comment(s): Pt smoked from 1973 until 1981. He denies any marijuana, street drug or alcohol use. He lives at home with his . They do have a second home in [place]. Past Drug Use History: None Reported Additional Drug Use History / Comment(s): CBD OIL-AT NIGHT-INSTRUCTED TO REFRAIN FROM USE FOR AT LEAST 24 HOURS PRIOR TO PROCEDURE - Past Family History Mother Family Medical History: Cancer Additional Family Medical History / Comment(s): Mother at age 82 from stomach cancer with metastatic disease to the brain. Father Family Medical History: Myocardial Infarction ([place]) Additional Family Medical History / Comment(s): Father at age 56 from a myocardial infarction. Brother(s) Family Medical History: No Reported History Additional Family Medical History / Comment(s): Patient has 3 brothers. One was murdered. Other brothers have no major medical problems. Sister(s) Family Medical History: Congestive Heart Failure (CHF) Additional Family Medical History / Comment(s): The patient is a total of 4 sisters. One from congenital heart disease at age 11. Son(s) Family Medical History: No Reported History Additional Family Medical History / Comment(s): Patient has 2 sons with no major medical problems. Medications and Allergies Home Medications Medication Instructions Recorded Confirmed Type Levothyroxine Sodium [Synthroid] 125 mcg PO DAILY 03/05/16 12/05/18 History Allergies Allergy/AdvReac Type Severity Reaction Status Date / Time No Known Allergies Allergy Verified 12/07/18 08:15 Physical Exam BP is 134/76, pulse is 88, respirations 16, temperature is 97.7, weight is 208, Spencer score is at 6, size of the neck is 16.5 inches, body mass index is 30.8 The patient appeared well nourished and normally developed. Vital signs as documented. Head exam is unremarkable. No scleral icterus or corneal arcus noted. Neck is without jugular venous distension, thyromegaly, or carotid bruits. Carotid upstrokes are brisk bilaterally. Lungs are clear to auscultation and percussion. Cardiac exam reveals the PMI to be normally sized and situated. Rhythm is regular. First and second heart sounds normal. No murmurs, rubs or gallops. Abdominal exam reveals normal bowel sounds, no masses, no organomegaly and no aortic enlargement. Extremities are nonedematous and both femoral and pedal pulses are normal.Examination of the skin revealed no evidence of significant rashes, suspicious appearing nevi or other concerning lesions.Neurologically, the patient is awake and alert and the patient does not have any focal neurological deficit. Cranial nerves are essentially intact. Assessment and Plan Plan: Obstructive sleep apnea, severe with an AHI of 48, receiving successful CPAP therapy. The patient is interested in updating his CPAP unit. Chronic hypersomnia, improved while on CPAP therapy Obesity with a BMI of 30.2 Chronic fatigue, improved Hypothyroidism Osteoarthritis Acid reflux Plan Will update the patient's CPAP unit. I'm going to keep him on a pressure of 11 cm of water for now with C-Flex of 3 and keep him on the same mask interface which is an Airfit F20 20 medium-size fullface mask. Encourage weight loss Maintain good sleep hygiene measures Comorbidities are stable We'll continue to follow. If a new CPAP machine is obtained, the patient will see him back in the office in 30-90 days for another compliancy check on his new machine. Sleep Note - Sleep Note Sleep Note: Temperature: Pulse Rate: Respiratory Rate: Blood Pressure: SpO2: Height: Weight: BMI: Neck Circumference:
== END ==
LOC: 3 N SLEEP 13:10
PROVIDERS: ATTEND Internal Medicine Critical Care Medicine
DX: G47.33 Obstructive sleep apnea (adult) (pediatric) (principal); G47.10 Hypersomnia, unspecified; E66.9 Obesity, unspecified; E03.9 Hypothyroidism, unspecified; M19.90 Unspecified osteoarthritis, unspecified site; K21.9 Gastro-esophageal reflux disease without esophagitis; R53.82 Chronic fatigue, unspecified; Z68.30 Body mass index [BMI] 30.0-30.9, adult; Z79.890 Hormone replacement therapy; Z87.891 Personal history of nicotine dependence
CPT/HCPCS: 99211

== ENCOUNTER → 2023-01-06 | Outpatient (CLI) | payer MEDICARE ==
[2023-01-06 16:42] LABS: Chol/HDL Ratio 3.88 Ratio; LDL Cholesterol,Calculated 121.1 mg/dL (0.0-131.0); VLDL Calculation 18.44 mg/dL (5.00-40.00)
== END | disposition home or self-care (01) ==
LOC: LABWHC1 08:08
PROVIDERS: ATTEND Internal Medicine Interventional Cardiology
DX: E78.5 Hyperlipidemia, unspecified (principal)
CPT/HCPCS: 36415; 80061

== ENCOUNTER → 2023-01-24 | Outpatient (CLI) | payer MEDICARE ==
--- NOTE | 2023-01-24 15:54 | P.PN ---
Progress Note - Text Progress Note Date: 01/24/23
--- NOTE | 2023-01-24 15:55 | P.PN ---
Subjective Progress Note Date: 01/24/23 01/24/2023, the patient is coming in for a compliance check regarding his new CPAP unit. The patient is a case of severe TRUE with an AHI of 41. The patient was offered a new CPAP unit which was essentially set same level of pressure of 11 cm of water. The patient. The patient is very successful with his treatment. Compliance data that has been collected between 12/24/2022 and 01/22/2023 showed that the patient has been 100% compliant and the patient achieved more than 4 hours of CPAP use 100% of the time. The patient has been averaging about 8 hours of 42 minutes of CPAP use per night. The 95th percentile leak is in order of 22 L/m and the patient's AHI is down to 1.1 and the patient is using an Airfit F20 fullface mask. The patient has no hypersomnia or sleepiness during the day. No weight gain. No cardiac vascular complications. No issues with the current CPAP unit. Therefore review of system was done and the positive findings were mentioned above history of present illness BP is 133/75 with a pulse of 63 and a respiration of 18 and the weight is 211. Temperature is 97.7. Jerome score is at 9. The patient appeared well nourished and normally developed. Vital signs as documented. Head exam is unremarkable. No scleral icterus or corneal arcus noted. Neck is without jugular venous distension, thyromegaly, or carotid bruits. Carotid upstrokes are brisk bilaterally. Lungs are clear to auscultation and percussion. Cardiac exam reveals the PMI to be normally sized and situated. Rhythm is regular. First and second heart sounds normal. No murmurs, rubs or gallops. Abdominal exam reveals normal bowel sounds, no masses, no organomegaly and no aortic enlargement. Extremities are nonedematous and both femoral and pedal pulses are normal.Examination of the skin revealed no evidence of significant rashes, suspicious appearing nevi or other concerning lesions.Neurologically, the patient is awake and alert and the patient does not have any focal neurological deficit. Cranial nerves are essentially intact. Assessment Symptomatically obstructive sleep apnea with an AHI of 48. The patient is compliant to CPAP therapy at this point in time. He is currently at a pressure of 11 cm of water Chronic hypersomnia secondary to above Obesity, weight is stable and the patient's weight is at 211 pounds with a body mass index of 30 Hypothyroidism Osteoarthritis Acid reflux Plan Compliancy was done and the patient has been quite comfortable, compliant and committed to long-term CPAP therapy. No need for any further adjustment. Keep the same pressure settings and mask interface and see me back in one year's time and follow-up. Treatment is successful and the patient meets insurance standards for compliancy.
== END ==
LOC: 3 N SLEEP 14:37
PROVIDERS: ATTEND Internal Medicine Critical Care Medicine
DX: G47.33 Obstructive sleep apnea (adult) (pediatric) (principal); G47.10 Hypersomnia, unspecified; E66.9 Obesity, unspecified; M19.90 Unspecified osteoarthritis, unspecified site; E03.9 Hypothyroidism, unspecified; K21.9 Gastro-esophageal reflux disease without esophagitis; Z68.30 Body mass index [BMI] 30.0-30.9, adult; Z79.890 Hormone replacement therapy; Z87.891 Personal history of nicotine dependence
CPT/HCPCS: 99212

== ENCOUNTER → 2024-06-19 | Outpatient (CLI) | payer MEDICARE ==
[2024-06-19 18:38] LABS: BUN/Creat Ratio 16.82 Ratio (12.00-20.00); Blood Urea Nitrogen 18.5 mg/dL (9.0-27.0); Calcium 9.5 mg/dL (8.7-10.3); Carbon Dioxide 27.7 mmol/L (21.6-31.8); Chloride 107 mmol/L (96-109); Glucose 113 mg/dL (70-110); Potassium 4.1 mmol/L (3.5-5.5); Sodium 147 mmol/L (135-145)
== END | disposition home or self-care (01) ==
LOC: LABWHC1 14:34
PROVIDERS: ATTEND Internal Medicine
DX: R00.2 Palpitations (principal)
CPT/HCPCS: 36415; 80048; 83735; 84439; 84443

== ENCOUNTER → 2024-08-01 | Outpatient (CLI) | payer MEDICARE ==
[2024-08-01 15:10] LABS: HCT 47.5 % (39.6-50.0); HGB 16.4 g/dL (13.0-17.0); MCH 28.5 pg (27.0-32.0); MCHC 34.5 g/dL (32.0-37.0); MCV 82.6 FL (80.0-97.0); Mean Platelet Volume 8.8 FL (9.5-12.2); NRBC Per 100 WBC 0 X 10*3/uL (0.00-0.01); Platelet Count 208 X 10*3/uL (140-440); RBC 5.75 X 10*6/uL (4.40-5.60); RDW 12.3 % (11.5-14.5)
[2024-08-01 16:44] LABS: BUN/Creat Ratio 12.73 Ratio (12.00-20.00); Calcium 9.3 mg/dL (8.7-10.3); Carbon Dioxide 23.2 mmol/L (21.6-31.8); Chloride 105 mmol/L (96-109); Glucose 118 mg/dL (70-110); Potassium 4.3 mmol/L (3.5-5.5); Sodium 141 mmol/L (135-145)
== END | disposition home or self-care (01) ==
LOC: LABWHC1 08:33
PROVIDERS: ATTEND Internal Medicine Interventional Cardiology
DX: R55 Syncope and collapse (principal)
CPT/HCPCS: 36415; 80048; 84443; 85027